=== PATIENT | female | born 1965 | race Caucasian/White ===

== ENCOUNTER → 2019-07-14 12:00 | Outpatient (CLI) | payer OTHER, SELFPAY | DX: Z23 Encounter for immunization (principal) | CPT/HCPCS: 90471; 90686 ==

== ENCOUNTER 2019-09-19 20:11 | Emergency (ER) | payer OTHER, SELFPAY ==
[2019-09-19] VITALS (8 sets, daily range): BP systolic 122–143; BP diastolic 54–65; PULSE 74–92; RESP 16–24; TEMP 36.1–36.3; O2SAT 95–97
--- NOTE | 2019-09-19 20:17 | DI.RAD.S_ITS ---
PROCEDURE: XR CHEST 1V INDICATIONS: Increasing shortness of breath/cough TECHNIQUE: One view of the chest was acquired. COMPARISON: None. FINDINGS: Surgical changes and devices: None. Lungs and pleura: Lungs are clear. No pleural effusions or pneumothorax. Mediastinum: Mediastinal contours appear normal. Heart size is normal. Bones and chest wall: No suspicious bony lesions. Overlying soft tissues appear unremarkable. IMPRESSION: No acute cardiopulmonary disease. Dictated by: Arnie Mcmahon M.D. on 09/19/2019 at 20:41 Approved by: Arnie Mcmahon M.D. on 09/19/2019 at 20:41
[2019-09-19] MEDS: ALBUTEROL/IPRATROPIUM 3 ML AMPUL INH ×2 (20:33→21:39)
--- NOTE | 2019-09-19 20:58 | ED.SOB ---
HPI - SOB/Dyspnea General Chief Complaint: Shortness of Breath/Dyspnea Stated Complaint: SOB COUGH Time Seen by Provider: 09/19/19 20:34 Source: patient Mode of arrival: Ambulatory Limitations: no limitations History of Present Illness HPI Narrative: The patient complains of shortness of breath for the past 4 days. She has cough is nonproductive. She has throat tightness. She denies ear pain, sinus pressure or postnasal drainage. She thinks she has allergies. She has no fever chills with the symptoms. She has no chest pain or palpitations. She has no chronic lung or cardiac disease. She is a cigarette smoker. She has been smoking cigarettes for 37 years. She is not on inhalers. She has no history of asthma. She has no orthopnea or peripheral edema with the above symptoms. Related Data Home Medications Medication Instructions Recorded Confirmed multivitamin 1 tab PO DAILY 08/17/19 08/17/19 Previous Rx's Medication Instructions Recorded lisinopril 20 mg tablet 20 mg PO DAILY #30 tab 08/17/19 prednisone 60 mg PO DAILY 5 Days #15 tab 09/19/19 Allergies Allergy/AdvReac Type Severity Reaction Status Date / Time Barbiturates Allergy Severe anaphylaxis Verified 08/17/19 15:29 Review of Systems Review of Systems ROS Unobtainable: All systems reviewed & are unremarkable except as noted in HPI and below Constitutional Constitutional: Denies chills, Denies fever(s), Denies lethargy and Denies weakness Eyes Eyes: Denies change in vision and Denies irritation ENT Ears, Nose, Mouth, and Throat: Denies change in voice, Denies dizziness, Denies dry mouth, Denies otalgia, Denies neck pain, Denies sinus pressure and Reports sore throat Cardiovascular Cardiovascular: Denies chest pain, Denies irregular heart rhythm, Denies lightheadedness, Denies palpitations, Reports dyspnea on exertion and Denies orthopnea Respiratory Respiratory: Reports as per HPI, Reports chest congestion, Reports cough, Reports dyspnea on exertion and Denies wheezing Gastrointestinal Gastrointestinal: Denies abdominal pain, Denies change in bowel habits, Denies diarrhea, Denies nausea and Denies vomiting Musculoskeletal Musculoskeletal: Denies back pain and Denies neck pain Neurologic Neurologic: Denies dizziness and Denies weakness Endocrine Endocrine: Denies palpitations Allergic/Immunologic Allergic/Immunologic: Denies wheezing Patient History Medical History (Updated 09/19/19 @ 22:49 by Te Yun MD) Hypertension (Acute) Social History Smoking Status: Current every day smoker Smoking Status: Current every day smoker tobacco type: cigarettes Exam Initial Vital Signs Initial Vital Signs: Vital Signs Temperature 96.9 F L 09/19/19 20:15 Pulse Rate 92 H 09/19/19 20:15 Respiratory Rate 22 09/19/19 20:15 Blood Pressure 134/65 09/19/19 20:15 Pulse Oximetry 97 09/19/19 20:15 Const General: cooperative and well developed Nutritional Appearance: well nourished Orientation: alert, awake, oriented x3 and not confused HENMT Head: normocephalic and atraumatic Nose: external nose normal and No nasal discharge Face and sinus: sinuses nontender and face symmetric Mouth: oral mucosae normal and moist mucous membranes Throat: posterior oropharynx normal Eyes Conjunctivae: conjunctivae normal Neck Neck: No lymphadenopathy and No JVD Chest Chest: normal inspection of the chest Resp Auscultation: diminished lung sounds, no rales, no rhonchi and wheezes lower bilaterally Cardio Rate: regular rate Rhythm: regular rhythm Heart Sounds: S1 normal, S2 normal, no click, no gallops, no murmurs and no rubs Pulses: normal peripheral pulses GI Inspection: non-distended Palpation: soft, no hepatosplenomegaly and No guarding Auscultation: normal bowel sounds Skin General: no rashes or lesions noted, No jaundice and No petechiae Neuro General: alert, oriented x3, gait normal and no focal motor deficits Speech: speech normal Extrem General: no pedal edema and no calf tenderness Course Course Course Narrative: The patient received 2 duo nebs over her stay. She received prednisone 60 mg p.o. emesis started on albuterol inhaler. Repeat lung exam continued to show wheezes, but decreased. Her overall air movement has increased significantly. She feels improved. Her chest x-ray is normal. Orders Ordered: ED Orders 09/19/19 20:17 XR chest 1V Stat 09/19/19 20:24 EKG-12 Lead Stat Discontinued Medications Albuterol (Ventolin Hfa Prepack) 1 box MISC SEEINSTR ONE Stop: 09/19/19 21:22 Last Admin: 12/16/19 21:28 Dose: 1 box Documented by: ANGIE Albuterol/Ipratropium (Duoneb) 3 ml INH NOW ONE Stop: 09/19/19 20:31 Last Admin: 09/19/19 20:33 Dose: 3 ml Documented by: YOMI Albuterol/Ipratropium (Duoneb) 3 ml INH NOW ONE Stop: 09/19/19 20:58 Last Admin: 09/19/19 21:39 Dose: 3 ml Documented by: YOMI Prednisone (Deltasone) 60 mg PO NOW ONE Stop: 09/19/19 20:58 Last Admin: 09/19/19 21:08 Dose: 60 mg Documented by: MARCIO Vital Signs Vital signs: Vital Signs - 8 hr 09/19/19 20:15 09/19/19 20:37 09/19/19 20:59 Temperature 96.9 F L Pulse Rate 92 H 74 79 Respiratory Rate 22 24 Blood Pressure 134/65 Blood Pressure [Left Arm] 123/58 L Pulse Oximetry 97 96 95 09/19/19 21:00 09/19/19 21:40 09/19/19 21:42 Temperature Pulse Rate 78 76 79 Respiratory Rate 18 16 Blood Pressure Blood Pressure [Left Arm] 133/61 143/62 H Pulse Oximetry 95 96 95 09/19/19 22:39 Temperature Pulse Rate 87 Respiratory Rate Blood Pressure Blood Pressure [Left Arm] 122/54 L Pulse Oximetry 97 MDM - SOB/Dyspnea Imaging Data Chest x-ray: Radiologist's impression: No acute cardiopulmonary changes. ECG Data Attestation: I personally reviewed and interpreted this ECG as follows: (Normal sinus rhythm rate 75 beats per minute. Normal intervals. No ectopy. No acute ST T wave changes. No arrhythmia. Normal study.) Discharge Plan Departure Patient Disposition: Home Clinical Impression: COPD (chronic obstructive pulmonary disease) Qualifiers: COPD type: unspecified COPD Qualified Code(s): J44.9 - Chronic obstructive pulmonary disease, unspecified Instructions: Chronic Obstructive Pulmonary Disease Activity Restrictions/Additional Instructions: Prednisone 60 mg daily for 5 days. Albuterol 2 puffs every 3-4 hours as needed for cough or shortness of breath. You need to quit smoking, follow up with her doctor for help if he cannot manage this on room. If you have increased problems with breathing return the ER. Prescriptions: New prednisone 20 mg tablet 60 mg PO DAILY 5 Days Qty: 15 RF: 0 No Action multivitamin Tablet 1 tab PO DAILY RF: 0 lisinopril 20 mg tablet 20 mg PO DAILY Qty: 30 RF: 5
[2019-09-19] MEDS: predniSONE 20 MG TABLET 60 MG PO (21:08)
[2019-09-19] MEDS: ALBUTEROL HFA PREPACK 1 BOX MISC (21:28)
== END 2019-09-19 23:28 | disposition home or self-care (01) ==
PROVIDERS: Emergency Provider Emergency Medicine
DX: J44.9 Chronic obstructive pulmonary disease, unspecified (principal); I10 Essential (primary) hypertension
CPT/HCPCS: 71045; 93005; 93010; 94640; 99281; 99284

== ENCOUNTER → 2019-10-20 08:20 | Outpatient (CLI) | payer OTHER, SELFPAY ==
[2019-10-20 09:59] LABS: Hematocrit 32.7 % (36-46); Hemoglobin 10.7 g/dL (12.0-16.0); Mean Corpuscular HGB Conc 32.8 % (30-36); Mean Corpuscular Hemoglobin 26.1 PG (26-34); Mean Corpuscular Volume 79.4 fL (80-100); Platelet Count 643 X10^3/uL (150-400); Red Blood Cell Count 4.12 X10^6/uL (4.0-5.2); Red Cell Distribution Width 15.1 % (11.6-14.8); White Blood Cell Count 8.4 X10^3/uL (4.5-11.0)
[2019-10-20 10:01] LABS: Alanine Aminotransferase 16 IU/L (<35); Albumin 4.4 g/dL (3.5-5.0); Albumin Globulin Ratio 1.5 (1.0-2.8); Alkaline Phosphatase 91 U/L (38-126); Aspartate Aminotransferase 18 IU/L (14-36); Bilirubin Total 0.4 mg/dL (0.2-1.3); Blood Urea Nitrogen 15 mg/dL (7-17); Calcium 9.9 mg/dL (8.4-10.2); Carbon Dioxide 25 mmol/L (22-32); Chloride 102 mmol/L (98-107); Cholesterol 224 mg/dL (140-199); Estimated Glomerular Filt Rate > 60.0 mL/min (>60); Globulin 2.9 g/dL (1.7-4.1); Glucose 97 mg/dL (70-100); HDL Cholesterol 60 mg/dL (40-60); HEMOLYSIS < 15 (0-50); LDL Cholesterol Calculated 130 mg/dL (<100); Potassium 4.6 mmol/L (3.4-5.1); Sodium 137 mmol/L (137-145); Total Protein 7.3 g/dL (6.3-8.2); Triglycerides 170 mg/dL (35-150)
[2019-10-20 10:02] LABS: Creatinine Urine Random 55.2 mg/dL
[2019-10-20 10:05] LABS: Microalbumi Creatinin Ratio Ur 85.1 ug/mg CR (<30); Microalbumin Urine Random 4.7 mg/dL (0-1.6)
[2019-10-20 10:17] LABS: Follicle Stimulating Hormone 7.46 mIU/mL; Luteinizing Hormone 8.79 mIU/mL
[2019-10-20 16:23] LABS: HEMOLYSIS < 15 (0-50); Iron 21 ug/dL (37-170)
[2019-10-20 16:34] LABS: Percent Iron Saturation 5 % (15-50); Total Iron Binding Capacity 436 ug/dL (265-497); Transferrin 370 mg/dL (206-381)
[2019-10-20 17:00] LABS: Ferritin 6.4 ng/mL (11.1-264)
[2019-10-20 17:30] LABS: Folate 13.1 ng/mL (2.76-20.0); Vitamin B12 444 pg/mL (239-931)
[2019-10-22 19:24] LABS: Estrogen 607.1 pg/mL
== END ==
PROVIDERS: PCP Nurse Practitioner Family; Visit Provider Nurse Practitioner Family
DX: Z00.00 Encounter for general adult medical examination without abnormal findings (principal); I10 Essential (primary) hypertension; N92.0 Excessive and frequent menstruation with regular cycle; Z13.6 Encounter for screening for cardiovascular disorders; D64.9 Anemia, unspecified
CPT/HCPCS: 36415; 80053; 80061; 82043; 82570; 82607; 82672; 82728; 82746; 83001; 83002; 83540; 83550; 85027

== ENCOUNTER → 2019-11-18 11:46 | Outpatient (CLI) | payer OTHER, SELFPAY ==
[2019-11-18 12:46] LABS: Hematocrit 34.4 % (36-46); Hemoglobin 11.2 g/dL (12.0-16.0); Mean Corpuscular HGB Conc 32.6 % (30-36); Mean Corpuscular Volume 79.7 fL (80-100); Platelet Count 575 X10^3/uL (150-400); Red Blood Cell Count 4.32 X10^6/uL (4.0-5.2); Red Cell Distribution Width 16.6 % (11.6-14.8); White Blood Cell Count 8.1 X10^3/uL (4.5-11.0)
[2019-11-18 13:35] LABS: Ferritin 7.7 ng/mL (11.1-264)
== END ==
PROVIDERS: PCP Nurse Practitioner Family; Referring Provider Nurse Practitioner Family; Visit Provider Nurse Practitioner Family
DX: D50.9 Iron deficiency anemia, unspecified (principal)
CPT/HCPCS: 36415; 82728; 85027

== ENCOUNTER → 2019-11-30 11:14 | Outpatient (CLI) | payer OTHER, SELFPAY ==
[2019-11-30 11:47] LABS: Hematocrit 39.7 % (36-46); Hemoglobin 13.1 g/dL (12.0-16.0); Mean Corpuscular HGB Conc 32.9 % (30-36); Mean Corpuscular Hemoglobin 26.4 PG (26-34); Mean Corpuscular Volume 80.2 fL (80-100); Platelet Count 515 X10^3/uL (150-400); Red Blood Cell Count 4.95 X10^6/uL (4.0-5.2); Red Cell Distribution Width 18.5 % (11.6-14.8); White Blood Cell Count 7.4 X10^3/uL (4.5-11.0)
[2019-11-30 12:44] LABS: Free T4, Direct Thyroxine 1.18 ng/dL (0.78-2.19)
[2019-11-30 12:58] LABS: Thyroid Stimulating Hormone 1.16 uIU/mL (0.47-4.68)
[2019-11-30 13:01] LABS: Ferritin 12 ng/mL (11-264)
== END ==
PROVIDERS: PCP Nurse Practitioner Family; Referring Provider Obstetrics & Gynecology; Visit Provider Obstetrics & Gynecology
DX: D50.9 Iron deficiency anemia, unspecified (principal)
CPT/HCPCS: 36415; 82728; 84439; 84443; 85027

== ENCOUNTER → 2019-12-22 15:31 | Outpatient (CLI) | payer OTHER, SELFPAY ==
--- NOTE | 2019-12-22 15:32 | DI.MRI.S_ITS ---
PROCEDURE: MR ABDOME PELVIS WWO CON INDICATIONS: adenxal mass TECHNIQUE: Coronal HASTE, sagittal breath-hold T2 FSE; axial 2-D FLASH in- and [id number], axial T1 FSE with fat saturation through the pelvis. Optional long- and short-axis uterine nonbreath-hold T2 FSE through the uterus. Sagittal or axial dynamic VIBE during IV gadolinium administration; postgadolinium axial and sagittal VIBE/2-D FLASH with fat saturation from the iliac crests to the symphysis. COMPARISON: [facility], US, US PELVIC COMPLETE, 12/07/2019, 14:48. FINDINGS: Image quality: Good. A few sequences are degraded by artifact. Uterus: Enlarged measuring approximately 9.4 x 7.5 x 7 cm. Large anterior fundal intramural fibroid measuring 5.8 x 5.4 x 4.3 cm. Small right mid intramural fibroid measuring 1.3 x 1.1 cm. There is mild distortion of the endometrial canal to to the large fibroid. Endometrial thickness measures 10 mm. IUD is located in the mid/lower portion of the uterus. IUD strings extend into the vagina. Tampon is in place. Small nabothian cysts. Adnexa: Right ovary is within normal limits with a few subcentimeter intrinsic T1 hyperintense cysts. In the left ovary demonstrates an intrinsic T1 hyperintensity, T2 isointense cyst measuring 3.2 x 2.9 x 2.7 cm, (08/28). This cyst is well-circumscribed and is mildly heterogeneous. No signal dropout on the fat saturation sequences. No enhancement is appreciated. Restricted diffusion is present. Urinary system: No large nephrosis. No renal mass. Bladder is unremarkable. Abdomen: Nonstenotic liver morphology. No significant steatosis. A few benign T2 hyperintense cysts. Gallbladder is unremarkable. No biliary ductal dilatation. No splenomegaly. Pancreas is normal. No pancreatic ductal dilatation. No adrenal nodule. Diverticulosis. No dilated loops of bowel. Appendix is normal in caliber. There is increased stool in the rectum. No free fluid. No aortic aneurysm. Atherosclerotic plaque is present. No adenopathy. Bones and soft tissues: No suspicious signal abnormality or enhancement. No hernia. Lung bases are clear. No pleural effusion. IMPRESSION: 1. Enlarged fibroid uterus. Large anterior fundal intramural fibroid measuring 5.8 cm. 2. Mild distortion of the endometrial canal due to fibroids. IUD is located in the mid/lower uterus. 3. Left ovarian circumscribed cyst measuring 3.2 cm with proteinaceous contents and no fat or enhancement. This is most likely a hemorrhagic cyst. -Followup pelvic ultrasound in 6-12 weeks is recommended. 4. Diverticulosis. Dictated by: Alex Curtis M.D. on 12/23/2019 at 8:21 Approved by: Alex Curtis M.D. on 12/23/2019 at 8:50
== END ==
PROVIDERS: PCP Nurse Practitioner Family; Referring Provider Obstetrics & Gynecology; Visit Provider Obstetrics & Gynecology
DX: N94.89 Other specified conditions associated with female genital organs and menstrual cycle (principal); D25.1 Intramural leiomyoma of uterus; N88.8 Other specified noninflammatory disorders of cervix uteri; K57.90 Diverticulosis of intestine, part unspecified, without perforation or abscess without bleeding; N83.202 Unspecified ovarian cyst, left side; Z97.5 Presence of (intrauterine) contraceptive device
CPT/HCPCS: 72197; A9579

== ENCOUNTER → 2020-02-09 15:06 | Outpatient (CLI) | payer OTHER, SELFPAY ==
--- NOTE | 2020-02-09 15:07 | DI.US.S_ITS ---
PROCEDURE: US PELVIC COMPLETE INDICATIONS: 2-3 MO F/U LEFT OVARIAN CYST TECHNIQUE: Real-time scanning was performed of the pelvic organs, with image documentation. Additional endovaginal scanning was necessary due to incomplete visualization of the adnexal and endometrial structures by transabdominal scanning. COMPARISON: [facility], , US PELVIC COMPLETE, 12/07/2019, 14:48. FINDINGS: Transabdominal scanning: Limited scanning through the kidneys shows no hydronephrosis. No pathologic free abdominal or pelvic fluid. Endovaginal scanning: Uterus: Uterus is normal in size at 10.1 x 7.2 x 7.6 cm. The endometrium measures 13 mm in combined thickness. An IUD is seen within the lower uterine segment. There is a fibroid seen within the mid anterior uterus that measures 5.6 x 5.5 x 5.7 cm. Ovaries: The right ovary measures 3.3 x 2.7 x 2.2 cm and demonstrates a 2.6 cm simple appearing cyst. The left ovary measures 4.3 x 2.8 x 3 cm and demonstrates a simple appearing cyst that measures up to 2.9. No suspicious ovarian masses are seen. No adnexal masses are seen. IMPRESSION: The IUD is seen within the lower uterine segment. 5.7 cm uterine fibroid noted anteriorly. Physiologic appearing cysts can be seen involving each ovary. Dictated by: Branden Miller M.D. on 02/10/2020 at 10:15 Approved by: Branden Miller M.D. on 02/10/2020 at 10:18
== END ==
PROVIDERS: PCP Nurse Practitioner Family; Referring Provider Obstetrics & Gynecology; Visit Provider Obstetrics & Gynecology
DX: D25.9 Leiomyoma of uterus, unspecified (principal); N83.202 Unspecified ovarian cyst, left side; N83.201 Unspecified ovarian cyst, right side; Z97.5 Presence of (intrauterine) contraceptive device
CPT/HCPCS: 76830; 76856

== ENCOUNTER → 2020-05-17 15:06 | Outpatient (CLI) | payer OTHER, SELFPAY ==
[2020-05-17 16:11] LABS: Hematocrit 38.3 % (36-46); Hemoglobin 13.1 g/dL (12.0-16.0); Mean Corpuscular HGB Conc 34.1 % (30-36); Mean Corpuscular Hemoglobin 29.7 PG (26-34); Mean Corpuscular Volume 87.1 fL (80-100); Platelet Count 433 X10^3/uL (150-400); Red Cell Distribution Width 14.1 % (11.6-14.8); White Blood Cell Count 9.7 X10^3/uL (4.5-11.0)
== END ==
PROVIDERS: PCP Nurse Practitioner Family; Referring Provider Nurse Practitioner Family; Visit Provider Nurse Practitioner Family
DX: D50.9 Iron deficiency anemia, unspecified (principal)
CPT/HCPCS: 36415; 85027

== ENCOUNTER → 2020-07-25 15:37 | Outpatient (CLI) | payer OTHER, SELFPAY ==
[2020-07-25 16:35] LABS: HEMOLYSIS < 15 (0-50); Iron 70 ug/dL (37-170)
[2020-07-25 16:39] LABS: Alanine Aminotransferase 40 IU/L (<35); Albumin 4.8 g/dL (3.5-5.0); Albumin Globulin Ratio 1.6 (1.0-2.8); Alkaline Phosphatase 78 U/L (38-126); Aspartate Aminotransferase 27 IU/L (14-36); BUN Creatinine Ratio 27.7 (6-22); Bilirubin Total 0.4 mg/dL (0.2-1.3); Blood Urea Nitrogen 18 mg/dL (7-17); Calcium 10.7 mg/dL (8.4-10.2); Carbon Dioxide 31 mmol/L (22-32); Chloride 102 mmol/L (98-107); Cholesterol 233 mg/dL (140-199); Estimated Glomerular Filt Rate > 60.0 mL/min (>60); Glucose 130 mg/dL (70-100); HDL Cholesterol 50 mg/dL (40-60); HEMOLYSIS < 15 (0-50); LDL Cholesterol Calculated 115 mg/dL (<100); Potassium 4.4 mmol/L (3.4-5.1); Sodium 140 mmol/L (137-145); Total Protein 7.8 g/dL (6.3-8.2); Triglycerides 342 mg/dL (35-150)
[2020-07-25 16:40] LABS: C-Reactive Protein Quant < 0.5 mg/dL (<1.0)
[2020-07-25 16:46] LABS: Percent Iron Saturation 19 % (15-50); Total Iron Binding Capacity 366 ug/dL (265-497); Transferrin 306 mg/dL (206-381)
[2020-07-25 16:49] LABS: Hematocrit 39.7 % (36-46); Hemoglobin 13.3 g/dL (12.0-16.0); Mean Corpuscular HGB Conc 33.5 % (30-36); Mean Corpuscular Hemoglobin 29.8 PG (26-34); Platelet Count 492 X10^3/uL (150-400); Red Blood Cell Count 4.47 X10^6/uL (4.0-5.2); Red Cell Distribution Width 13.6 % (11.6-14.8); White Blood Cell Count 9.6 X10^3/uL (4.5-11.0)
[2020-07-25 17:11] LABS: Ferritin 14 ng/mL (11-264)
[2020-07-25 17:42] LABS: Erythrocyte Sedimentation Rate 13 MM/HR (0-20)
[2020-07-27 20:56] LABS: ANA Screen, IFA Positive (.)
== END ==
PROVIDERS: PCP Nurse Practitioner Family; Referring Provider Nurse Practitioner Family; Visit Provider Nurse Practitioner Family
DX: D50.9 Iron deficiency anemia, unspecified (principal); E78.2 Mixed hyperlipidemia; I10 Essential (primary) hypertension; M25.649 Stiffness of unspecified hand, not elsewhere classified; M79.643 Pain in unspecified hand
CPT/HCPCS: 36415; 80053; 80061; 82728; 83540; 83550; 85027; 85651; 86038; 86140

== ENCOUNTER → 2020-08-02 04:07 | Outpatient (CLI) | payer OTHER, SELFPAY | PROVIDERS: PCP Nurse Practitioner Family; Referring Provider Internal Medicine; Visit Provider Internal Medicine | DX: Z23 Encounter for immunization (principal) | CPT/HCPCS: 90471; 90686 ==

== ENCOUNTER → 2020-08-14 09:13 | Outpatient (CLI) | payer OTHER, SELFPAY ==
--- NOTE | 2020-08-14 09:15 | DI.US.S_ITS ---
PROCEDURE: US PELVIC COMPLETE INDICATIONS: FIBROID TECHNIQUE: Real-time scanning was performed of the pelvic organs, with image documentation. Additional endovaginal scanning was necessary due to incomplete visualization of the adnexal and endometrial structures by transabdominal scanning. COMPARISON: [facility], , PELVIC COMPLETE, 12/07/2019, 14:48. [facility], , PELVIC COMPLETE, 02/09/2020, 15:23. FINDINGS: Transabdominal scanning: Limited scanning through the kidneys shows no hydronephrosis. No pathologic free abdominal or pelvic fluid. Endovaginal scanning: Uterus: Uterus is normal in size at 9.8 x 6 x 1 x 7.2 cm. Along the right anterior aspect of the uterus, there is an intramural fibroid seen that measures 4.4 x 3.7 x 5 cm, which previously measured 5.6 x 5.5 x 5.7 cm The endometrial stripe is not well seen. The IUD is poorly identified secondary to the fibroid, yet is believed to be at the level of the cervix. Incidental note is made of nabothian cysts. Ovaries: The right ovary measures 2.5 x 1.7 x 1.7 cm. The left ovary measures 2.6 x 1.5 x 1.9 cm. The ovaries have a normal sonographic appearance. No adnexal masses are seen. IMPRESSION: Fibroid again seen. The fibroid obscures visualization of the endometrial stripe. IUD poorly seen, which is believed to be at the level of the cervix. Please correlate with known patient history. If clinically appropriate, a dedicated CT could be considered for further evaluation. Dictated by: Branden Miller M.D. on 08/14/2020 at 9:23 Approved by: Branden Miller M.D. on 08/14/2020 at 9:27
== END ==
PROVIDERS: PCP Nurse Practitioner Family; Referring Provider Obstetrics & Gynecology; Visit Provider Obstetrics & Gynecology
DX: N92.1 Excessive and frequent menstruation with irregular cycle (principal); D25.1 Intramural leiomyoma of uterus; N88.8 Other specified noninflammatory disorders of cervix uteri; Z97.5 Presence of (intrauterine) contraceptive device
CPT/HCPCS: 76830; 76856

== ENCOUNTER → 2020-08-16 07:10 | Outpatient (CLI) | payer OTHER, SELFPAY ==
[2020-08-16 08:26] LABS: Hemoglobin 13.3 g/dL (12.0-16.0); Mean Corpuscular HGB Conc 33.3 % (30-36); Mean Corpuscular Hemoglobin 29.3 PG (26-34); Mean Corpuscular Volume 88.2 fL (80-100); Platelet Count 463 X10^3/uL (150-400); Red Blood Cell Count 4.54 X10^6/uL (4.0-5.2); Red Cell Distribution Width 13.1 % (11.6-14.8); White Blood Cell Count 8.2 X10^3/uL (4.5-11.0)
[2020-08-16 08:29] LABS: Alanine Aminotransferase 42 IU/L (<35); Albumin 4.7 g/dL (3.5-5.0); Albumin Globulin Ratio 1.5 (1.0-2.8); Alkaline Phosphatase 73 U/L (38-126); Aspartate Aminotransferase 28 IU/L (14-36); BUN Creatinine Ratio 40.4 (6-22); Bilirubin Total 0.5 mg/dL (0.2-1.3); Blood Urea Nitrogen 23 mg/dL (7-17); Carbon Dioxide 31 mmol/L (22-32); Chloride 100 mmol/L (98-107); Cholesterol 215 mg/dL (140-199); Estimated Glomerular Filt Rate > 60.0 mL/min (>60); Globulin 3.2 g/dL (1.7-4.1); Glucose 122 mg/dL (70-100); HDL Cholesterol 46 mg/dL (40-60); HEMOLYSIS < 15 (0-50); LDL Cholesterol Calculated 132 mg/dL (<100); Potassium 4.4 mmol/L (3.4-5.1); Sodium 136 mmol/L (137-145); Total Protein 7.9 g/dL (6.3-8.2); Triglycerides 186 mg/dL (35-150)
[2020-08-16 12:18] LABS: Add Manual Diff / Slide Review NO; Basophils Absolute Auto 100 /uL (0-100); Basophils Percent Auto 0.6 % (0-2); Eosinophils Absolute Auto 200 /uL (0-450); Eosinophils Percent Auto 1.9 % (2-4); Hematocrit 39.6 % (36-46); Hemoglobin 13.4 g/dL (12.0-16.0); Lymphocytes Absolute Auto 2100 /uL (1100-4500); Lymphocytes Percent Auto 26.3 % (25-40); Mean Corpuscular HGB Conc 33.7 % (30-36); Mean Corpuscular Hemoglobin 29.7 PG (26-34); Mean Corpuscular Volume 87.9 fL (80-100); Monocytes Absolute Auto 500 /uL (0-900); Monocytes Percent Auto 6.2 % (3-14); Neutrophils Absolute Auto 5300 /uL (1500-7000); Platelet Count 462 X10^3/uL (150-400); Red Blood Cell Count 4.51 X10^6/uL (4.0-5.2); Red Cell Distribution Width 13.3 % (11.6-14.8); White Blood Cell Count 8.1 X10^3/uL (4.5-11.0)
[2020-08-16 12:27] LABS: Hemoglobin A1C% w Est Avg Glu 6.3 % (4.0-6.0)
== END ==
PROVIDERS: PCP Nurse Practitioner Family; Referring Provider Nurse Practitioner Family; Visit Provider Nurse Practitioner Family
DX: E83.52 Hypercalcemia (principal); I10 Essential (primary) hypertension; R73.9 Hyperglycemia, unspecified; R79.89 Other specified abnormal findings of blood chemistry; E78.2 Mixed hyperlipidemia
CPT/HCPCS: 36415; 80053; 80061; 83036; 85025; 85027

== ENCOUNTER → 2020-10-10 12:52 | Outpatient (CLI) | payer OTHER, SELFPAY ==
[2020-10-10] MEDS: COVID-19 VACC(MODERNA-1)/PF 100 MCG/0.5 ML VIAL IM (12:58)
== END ==
PROVIDERS: PCP Nurse Practitioner Family; Visit Provider Internal Medicine
DX: Z23 Encounter for immunization (principal)
CPT/HCPCS: 0011A; 91301

== ENCOUNTER → 2020-10-12 14:02 | Outpatient (CLI) | payer OTHER, SELFPAY ==
[2020-10-12 14:24] LABS: COVID19 -Nasal RAPID Negative (Negative)
== END ==
PROVIDERS: PCP Nurse Practitioner Family; Visit Provider Obstetrics & Gynecology
DX: Z20.822 Contact with and (suspected) exposure to COVID-19 (principal); Z01.812 Encounter for preprocedural laboratory examination
CPT/HCPCS: 87635

== ENCOUNTER 2020-10-15 06:45 | Day surgery (SDC) | payer OTHER, SELFPAY ==
[2020-10-12 09:17] VITALS: BMI 30.9
[2020-10-15] VITALS (16 sets, daily range): BP systolic 107–136; BP diastolic 45–71; PULSE 77–106; RESP 10–20; TEMP 35.9–37.3; O2SAT 88–97; BMI 31.2
--- NOTE | 2020-10-15 | PATH_ITS ---
[facility] Accession Number: [id number] . 01 Material submitted: . uterus - UTERUS, FIBROID, PORTION OF BILATERAL FALLOPIAN TUBES, BILATERAL OVARIES . 01 Clinical history: . OPB . 02 Diagnosis: Uterus, Fibroid, Portion of Bilateral Fallopian Tubes, Bilateral Ovaries, Supracervical Hysterectomy and Bilateral Salpingo-oophrectomy (weight 199 grams, fragmented weight): Portions of proliferative endometrium; negative for glandular hyperplasia, cytologic atypia, or malignancy. Disordered proliferative endometrium involves a benign endometrial polyp (3.5 cm in greatest dimension); negative for glandular hyperplasia, cytologic atypia, or malignancy. Myometrium with multiple leiomyomas (0.3-6.0 cm in greatest dimension); negative for cytologic atypia, increased mitotic activity, or necrosis. Uterine serosa with no abnormality by gross examination. Ovaries x2 with multiple corpora albicancia, a benign corpus luteum cyst, and benign cortical inclusion cysts (1-8 mm in greatest dimension); negative for atypia or malignancy. One segment of attached fallopian tube and separate segments of fallopian tube x 3 with no significant histomorphologic abnormality; negative for atypia or malignancy. Para-adnexal tissue with minute, benign glandular inclusions and benign Walthard cell nests. [facility] 10/18/2020 1708 Local . 02 Electronically signed: . Negra Swanson MD, Pathologist NPI- [id number] . 01 Gross description: . The specimen is received in formalin, labeled uterus, fibroid, portion of bilateral fallopian tubes and bilateral ovaries and consists of a 199-gram fragmented uterus measuring 15.0 x 13.0 x 6.0 cm in aggregate. A cervix is not identified. The serosa is cox-pink focally hemorrhagic and smooth. Sectioning reveals a cox-pink glistening hemorrhagic endometrium measuring 0.1 cm in thickness. The myometrium is cox-pink and trabeculated. There are multiple cox-white whorled leiomyomata fragments ranging from 0.3 to 6.0 cm with no areas of hemorrhage, necrosis or cystic degeneration. There is a fragment of presumed endometrium and myometrium with an attached 3.5 x 3.0 x 1.0 cm cox-pink polyp which does not appear to extend into the myometrium. Two ovaries are identified measuring 2.2 x 2.0 x 1.6 cm and 3.0 x 2.5 x 1.8 cm. The external surfaces are cox and cerebriform. Sectioning reveals multiple smooth-walled serous-filled cysts ranging from 0.1 to 0.8 cm, with no papillary excrescences. The larger ovary has a 2.0 cm in length by 0.6 cm in diameter fimbriated portion of fallopian tube attached. Also received are three additional fallopian tube fragments measuring 4.6 x 1.5 x 1.2 cm in aggregate. The serosa is cox-pink and smooth with focal fibrinous adhesions. Sectioning reveals a stellate lumen measuring 0.2 cm in diameter. Stallion Keeper sections are submitted. . A1-A6 - polyp, entirely submitted (base of polyp in A4-A6). A7 - indirect sales representative endomyometrium. A8-A10 - indirect sales representative leiomyomata. A11-A12 - indirect sales representative ovary and bisected attached fimbria. A13 - indirect sales representative other ovary. A14 - indirect sales representative detached fallopian tube fragments and bisected fimbria. ([id number]) /MRV 10/17/[address] [place] [address] . 02 Pathologist provided ICD-10: N93.9, D25.9, N84.0 . 02 CPT . 398695 Performed at: 01 [facility] [address], [place], [place] [id number] MD Enmanuel Rogers MD Phone: [phone] Performed at: 02 [facility] [address] [place], [place] [id number] MD Gavi Versa MD Phone: [phone]
[2020-10-15] MEDS: LACTATED RINGERS 1,000 ML 42 ML IV ×2 (07:00→09:02)
--- NOTE | 2020-10-15 07:47 | PM.PREOP ---
Pre-operative Note COVID-19 COVID-19 status: Negative Result date/Date tested (Pos, Neg/Pending): 10/12/20 Interval Note History & Physical reviewed/Exam performed by Physician: Yes Changes to H&P: No
[2020-10-15] MEDS: CEFAZOLIN 2 GM/100 ML FROZ.PIGGY IV (08:08)
[2020-10-15 08:24] LABS: Add Manual Diff / Slide Review NO; Basophils Absolute Auto 100 /uL (0-100); Basophils Percent Auto 1.3 % (0-2); Eosinophils Absolute Auto 200 /uL (0-450); Hematocrit 39.8 % (36-46); Hemoglobin 13.1 g/dL (12.0-16.0); Lymphocytes Absolute Auto 1800 /uL (1100-4500); Lymphocytes Percent Auto 22.7 % (25-40); Mean Corpuscular Volume 87.8 fL (80-100); Monocytes Absolute Auto 400 /uL (0-900); Monocytes Percent Auto 5.6 % (3-14); Neutrophils Absolute Auto 5300 /uL (1500-7000); Neutrophils Percent Auto 68.4 % (50-75); Platelet Count 446 X10^3/uL (150-400); Red Blood Cell Count 4.53 X10^6/uL (4.0-5.2); Red Cell Distribution Width 13.7 % (11.6-14.8); White Blood Cell Count 7.7 X10^3/uL (4.5-11.0)
[2020-10-15 08:35] LABS: BUN Creatinine Ratio 29.6 (6-22); Blood Urea Nitrogen 16 mg/dL (7-17); Calcium 9.4 mg/dL (8.4-10.2); Carbon Dioxide 30 mmol/L (22-32); Chloride 104 mmol/L (98-107); Estimated Glomerular Filt Rate > 60.0 mL/min (>60); Glucose 110 mg/dL (70-100); HEMOLYSIS < 15 (0-50); Potassium 4.6 mmol/L (3.4-5.1); Sodium 139 mmol/L (137-145)
[2020-10-15] MEDS: ACETAMINOPHEN IV 1,000 MG/100 ML VIAL 400 MG IV (08:43)
[2020-10-15] MEDS: BUPIVACAINE 0.25% W/ EPI (PF) 10 ML VIAL 20 ML INJ (08:49)
--- NOTE | 2020-10-15 08:51 | SUR.OPER ---
Addendum entered by Maria C Goodman R.N. 10/15/20 10:43: Wen catheter removed by Dr. Valente prior to Cystoscopy and new urinary catheter replaced at [address] Valente. Original Note: Lithotomy on padded OR bed. Le Grand Pad Positioner under torso. Head on foam and gel donut, arms padded and tucked at sides. Legs secured in padded yellow fins stirrups.
--- NOTE | 2020-10-15 10:51 | PM.OP.1 ---
Operative Date/Time/Diagnoses Date of procedure: 10/15/20 Time of procedure: 08:30 Pre-op diagnosis: fibroid uterus, AUB Post-op diagnosis: same Procedure & Clinicians Procedure: laparoscopic supracervical hysterectomy and bilateral salpingoophorectomy Same procedure as scheduled: Yes Indications: Fibroid uterus, abnormal uterine bleeding. Surgeon: Sona Valente Radiologist Chief Of Breast Imaging: Ariella Camara Anesthesia Type: General Operative Notes Findings: Normal dominant survey, normal ovaries, normal rim dense of fallopian tube. Large anterior uterine fibroid. Normal vulva and vagina. IUD not visualized on laparoscopy, not in specimen. Closure Type: primary Specimen(s): other Applied: catheter Estimated Blood Loss (mL): 50 Procedure in detail: After proper consents were obtained, the patient was taken to the operating room. General anesthesia was induced, and she was placed in the dorsal lithotomy position and prepped and draped in the normal sterile fashion. A menendez catheter was placed, and a speculum placed in the patient's vagina. A single tooth tenaculum was applied to the anterior lip of the cervix, and IUD strings could not be visualized. Exploration of the endometrial cavity with polyp forceps did not locate the IUD. The cervix was found to be dilated at the beginning of the procedure, and a uterine manipulator was gently inserted and the balloon inflated to 5ccs. The tenaculum and speculum were removed from the vagina. Attention was then turned to the abdomen, where 1cc of .25% marcaine with epinephrine was used to infiltrate the skin just below the umbilicus. A scalpel was used to make a 5mm incision, the anterior abdominal wall was elevated, and a Veress needle gently inserted into the abdomen. Intraperitoneal placement was confirmed with a drop of normal saline passed through the veress needle with gravity, and CO2 used to insufflate the abdomen to 15mmHg. A 5mm trocar and sleeve were placed into the abdomen through this incision and intraperitoneal placement was confirmed visually with insertion of the laparoscope. Abdominal survey at this time was normal, and lateral ports were placed under direct visualization. These were placed on the left and right, 8cm from the umbilicus and after infiltration of 1mm of local anesthetic as above. The patient was placed in trendelenburg position, and a blunt probe used to gently push the bowel out of the pelvis. The ovaries and fallopian tube remnants appeared normal bilaterally. The uterus was notable for large anterior fibroid, with filmy adhesions holding it to the anterior abdominal wall. A atraumatic grasper was used to elevate the remnant of the right fallopian tube, and a PK device was used to amputate this remnant, which was removed from the abdomen. The uteroovarian ligament and round ligaments were then cauterized and transected with this device. Filmy adhesions were noted to be adhering the anterior wall of the uterus and the bladder to the anterior abdominal wall, these were carefully dissected away with Endo [place] without cautery. Attention was then turned to the patient's left side, where the fallopian tube was amputated using the PK device along the mesosalpinx and the round and utero-ovarian ligaments transected with the PK device. The vesicouterine peritoneum was identified, and a bladder flap created with the PK device and gentle traction. The uterine arteries were identified bilaterally, and cauterized and cut at the level of the internal os. The uterine manipulator was removed. The Chance loop was inserted into the abdomen, and placed around the uterus at the level of the internal os. After careful inspection for proper placement anteriorly and posteriorly, this device was used to amputate the uterine fundus without complication. The PK device was used to ablate the cervical os, and hemostasis achieved where necessary with the PK device. Attention was then turned to the ovaries, which had not been adequately accessible for removal prior to removal of the uterus with the large fibroid. The right ovary was grasped with an atraumatic grasper, and placed on traction. The IP was easily visualized, and the PK device used to the clamp, cauterize, and cut the IP, hugging the ovary throughout. Attention was then turned to the left ovary, where the same procedure was noted. Due to the patient's filmy adhesive scar tissue, the ureters could not be visualized, and care was taken to hug both ovaries during the removal. Attention was then turned to the abdominal wall, where .25% marcaine with epinephrine was used to infiltrate a midline area 2cm above the pubic symphesis. A scalpel was used to make a 3cm minilaparotomy, and a 15mm trocar and sleeve inserted under direct visualization into the abdominal cavity. A 12mm endocatch bag was placed through this port under direct visualization, and carefully deployed into the abdomen. The uterus and ovaries were placed in the bag, and the bag was closed and removed under direct visualization of all parts of the bag. The open end of the bag was removed through the port, the port was removed, and the open end of the endocatch bag brought through the incision. A small Shania device was inserted to protect the incision and skin, and the uterus was brought to the opening of the incision and carefully hand morcellated out through the incision using a scalpel. After removal of the uterus, the shania device and endocatch bag were removed. The fascia at the minilaparotomy incision was closed using 0 vicryl in a running fashion. The abdomen was re-insufflated, hemostasis at the operative sites assured, and a repeat abdominal survey was normal. The laparoscope was removed from the abdomen, the insufflating gas allowed to escape. The Menendez catheter was removed from the bladder and a cystoscopy performed, with efflux of ureteral jets noted from both ureters bilaterally and no bladder injury noted. The ports removed from the abdomen. An interrupted suture was used at the mini-laparotomy to close the subcutaneous space in an interrupted fashion, and the skin at all 4 incisions closed with 4-0 biosyn, then covered with steri strips and bandages. The patient tolerated the procedure well, all counts were correct, 2g of Ancef were given at the beginning of the case. The patient was transported to PACU in stable condition. Dr. Camara presence was essential throughout the case to assist in manipulation of the large fibroid uterus for adequate visualization. She assisted with uterine manipulation, cautery, and achieving hemostasis. IVF 1300ccs LR UOP 100ccs clear yellow urine EBL 50ccs Complications: none Post-operative Condition: stable Disposition: PACU Plan for aftercare: Routine postoperative care.
--- NOTE | 2020-10-15 12:34 | SUR.PHASEI ---
pt arrived from OR, oral airway in place, loud snoring. 4L O2 via NC to maintain sats. airway out at 1127. Pt very somnolent. Arrouses easily but states she doesn't feel good, i need to go back to sleep. able to resume sleeping. down to 2LPM on NC, tried RA but down to 89. transported to room 202. Report to Madyson NUNES. Pt requested rings be placed back on her hand, this was done per pt request.
[2020-10-15] MEDS: LACTATED RINGERS 1,000 ML 125 ML IV (13:07)
[2020-10-15] MEDS: ACETAMINOPHEN 325 MG TABLET 650 MG PO (14:52)
--- NOTE | 2020-10-15 14:54 | PC.NURSE ---
Arrived on unit at 12:30. BP: 130/59, HR 103, Temp 97.3, Resp 18, O2 97 on room air. Pain 5/10. Given PRN Tylenol 650 mg. SCDs removed per patient request. Wen catheter removed. at bedside. Patient wants to discharge home today.
[2020-10-15] MEDS: IBUPROFEN 400 MG TABLET 600 MG PO (16:19)
--- NOTE | 2020-10-15 17:37 | PM.PN.1 ---
Subjective Subjective Date Patient Seen: 10/15/20 Time Patient Seen: 18:03 Interval history: Patient has done well since coming to floor from PACU. Patient is voiding clear urine, is ambulating, has tolerated a normal medial, is passing flatus, and has good pain control on p.o. pain medication. Patient strongly desires discharge home. Exam Vital Signs (past 8 hours): - 10/15/20 11:06 10/15/20 11:11 10/15/20 11:16 Temperature 97.8 F Pulse Rate 106 H 102 H 104 H Respiratory Rate 13 14 13 Blood Pressure 128/54 L 119/54 L 107/50 L Pulse Oximetry 88 L 94 95 10/15/20 11:20 10/15/20 11:30 10/15/20 11:35 Temperature 97.3 F L Pulse Rate 102 H 106 H 103 H Respiratory Rate 13 14 12 Blood Pressure 124/59 L 130/57 L 134/62 Pulse Oximetry 96 97 96 10/15/20 11:46 10/15/20 11:56 10/15/20 12:06 Temperature 98 F Pulse Rate 102 H 101 H 100 H Respiratory Rate 12 10 L 14 Blood Pressure 119/45 L 136/63 134/63 Pulse Oximetry 95 95 96 10/15/20 12:20 10/15/20 12:30 10/15/20 13:00 Temperature 97.6 F 97.2 F L 97.4 F L Pulse Rate 101 H 97 H 98 H Respiratory Rate 15 16 16 Blood Pressure 125/61 115/47 L 124/67 Pulse Oximetry 91 95 95 10/15/20 13:30 10/15/20 14:00 10/15/20 15:30 Temperature 97.3 F L 97.3 F L 96.6 F L Pulse Rate 100 H 103 H 101 H Respiratory Rate 16 18 20 Blood Pressure 119/61 130/59 L 130/64 Pulse Oximetry 95 97 93 Oxygen Delivery Method Room Air Oxygen Flow Rate 0 Const General: cooperative, healthy appearing and comfortable GI Inspection: incision (Clean, dry, intact, covered with bandages) Palpation: soft and No tender Skin General: no rashes or lesions noted Objective Labs Result Diagrams: 10/15/20 07:45 10/15/20 07:45 Labs: Laboratory Results - last 24 hr 10/15/20 10/15/20 10/15/20 07:45 07:45 07:45 WBC 7.7 RBC 4.53 Hgb 13.1 Hct 39.8 MCV 87.8 MCH 29.0 MCHC 33.0 RDW 13.7 Plt Count 446 H Neut % (Auto) 68.4 Lymph % (Auto) 22.7 L [place] % (Auto) 5.6 Eos % (Auto) 2.0 Baso % (Auto) 1.3 Neut # (Auto) 5300 Lymph # (Auto) 1800 [place] # (Auto) 400 Eos # (Auto) 200 Baso # (Auto) 100 Sodium 139 Potassium 4.6 Chloride 104 Carbon Dioxide 30 BUN 16 Creatinine 0.54 Estimated GFR > 60.0 BUN/Creatinine Ratio 29.6 H Glucose 110 H Calcium 9.4 Blood Type O Positive Antibody Screen Negative [facility] Medical History Depression (~2016) Elevated blood sugar Elevated platelet count Fractures (~2002) Hand joint stiff (2016) Hand pain (2016) Heavy menses (2017) Hypertension (2006) Iron deficiency anemia (10/2019) Irregular menstrual cycle (~2017) Mixed hyperlipidemia Painful menstrual periods (~2017) Pet allergy (09/2019) Positive JOSE ALBERTO (antinuclear antibody) Prediabetes (08/2020) Tobacco abuse Vision disorder Surgical History Anesthesia History of section History of tubal ligation (~02/28/05) Family History Mother Cancer History of heart disease Stroke Social History household members: spouse and children Smoking Status: Current every day smoker second hand exposure: No alcohol intake: never substance use type: does not use Assessment & Plan Assessment & Plan narrative: This patient is recovering well, meeting postoperative goals and stable for her strongly desired discharge home. We discussed precautions for return at length, and the patient and her partner vocalized understanding. We discussed her p.o. pain control regimen, and the patient and her partner vocalized understanding. The plan to follow-up in 1-2 weeks for an incision check in clinic. Given that the patient was not postmenopausal and that she had her ovaries removed, we discussed the risk of severe symptoms of surgical menopause. The patient smokes and has other risk factors for hormone replacement therapy, we discussed the increased risk of stroke and VTE in particular. Smoking is not an absolute contraindication to hormone replacement therapy, but we discussed that the transdermal preparation has a lower risk of both of these side effects than oral estrogen, that she does not require progesterone, and that I would start on a lower dose as the effect is somewhat dose dependent. We discussed that if she has severe symptoms of menopause, her dose could be titrated up as needed.
== END 2020-10-15 18:55 | disposition home or self-care (01) ==
LOC: OR 06:46 → AC 06:47
PROVIDERS: PCP Nurse Practitioner Family; Referring Provider Nurse Practitioner Family; Visit Provider Obstetrics & Gynecology
PROC: 0UT94ZL Resection of Uterus, Supracervical, Percutaneous Endoscopic Approach (ICD-10-PCS; CPT 58542; principal; 2020-10-15 07:45)
DX: N93.9 Abnormal uterine and vaginal bleeding, unspecified (principal); D25.9 Leiomyoma of uterus, unspecified; N73.6 Female pelvic peritoneal adhesions (postinfective); I10 Essential (primary) hypertension; F17.210 Nicotine dependence, cigarettes, uncomplicated; N84.0 Polyp of corpus uteri
CPT/HCPCS: 58542; 80048; 82962; 85025; 86850; 86900; 86901; 99406; J0131; J0330; J0690; J1100; J1170; J1885; J2405; J2704; J2795; J3010

== ENCOUNTER → 2020-11-06 16:20 | Outpatient (CLI) | payer OTHER, SELFPAY ==
[2020-10-15 06:59] VITALS: BMI 31.2
[2020-11-06] MEDS: COVID-19 VACC #2, MRNA(MOD) 100 MCG/0.5 ML VIAL IM (16:25)
== END ==
PROVIDERS: PCP Nurse Practitioner Family; Visit Provider Internal Medicine
DX: Z23 Encounter for immunization (principal)
CPT/HCPCS: 0012A; 91301

== ENCOUNTER → 2021-01-03 08:30 | Outpatient (CLI) | payer OTHER, SELFPAY ==
[2020-10-15 06:59] VITALS: BMI 31.2
[2021-01-03 09:06] LABS: COVID19 -Nasal RAPID Negative (Negative)
== END ==
PROVIDERS: PCP Nurse Practitioner Family; Visit Provider Family Medicine
DX: R05 Cough (principal); Z20.822 Contact with and (suspected) exposure to COVID-19
CPT/HCPCS: 87635

== ENCOUNTER 2021-02-28 09:29 | Emergency (ER) | payer OTHER, SELFPAY ==
[2020-10-15 06:59] VITALS: BMI 31.2
[2021-02-28] VITALS (9 sets, daily range): BP systolic 131–167; BP diastolic 60–76; PULSE 67–91; RESP 12–19; TEMP 36.5; O2SAT 95–98; BMI 30.2
--- NOTE | 2021-02-28 09:43 | DI.US.S_ITS ---
PROCEDURE: US ABDOMEN LIMITED INDICATIONS: RUQ PAIN TECHNIQUE: Real-time focused scanning was performed of the abdomen, with image documentation. COMPARISON: None. FINDINGS: Increased hepatic parenchymal echogenicity indicative of at least moderate hepatic steatosis. No focal hepatic mass. No intrahepatic or extrahepatic biliary ductal dilatation. Normally distended gallbladder without wall thickening, pericholecystic fluid, sludge, or gallstone. Visualized portions of the pancreas are within normal limits. IMPRESSION: At least moderate severity hepatic steatosis. No findings of cholecystitis or cholelithiasis. Dictated by: Pepe Kumar M.D. on 02/28/2021 at 10:21 Approved by: Pepe Kumar M.D. on 02/28/2021 at 10:21
[2021-02-28 09:48] LABS: Add Manual Diff / Slide Review NO; Basophils Absolute Auto 100 /uL (0-100); Basophils Percent Auto 0.7 % (0-2); Eosinophils Absolute Auto 200 /uL (0-450); Eosinophils Percent Auto 2.2 % (2-4); Hematocrit 40.7 % (36-46); Hemoglobin 13.9 g/dL (12.0-16.0); Lymphocytes Absolute Auto 1900 /uL (1100-4500); Mean Corpuscular HGB Conc 34.1 % (30-36); Mean Corpuscular Hemoglobin 29.3 PG (26-34); Mean Corpuscular Volume 85.9 fL (80-100); Monocytes Absolute Auto 600 /uL (0-900); Monocytes Percent Auto 6.4 % (3-14); Neutrophils Absolute Auto 6200 /uL (1500-7000); Neutrophils Percent Auto 69.7 % (50-75); Platelet Count 433 X10^3/uL (150-400); Red Blood Cell Count 4.74 X10^6/uL (4.0-5.2); Red Cell Distribution Width 13.3 % (11.6-14.8); White Blood Cell Count 8.9 X10^3/uL (4.5-11.0)
--- NOTE | 2021-02-28 09:49 | ED.GENADULT ---
HPI - General Adult General Chief complaint: Abdominal Pain Stated complaint: Abdominal Pain Time Seen by Provider: 02/28/21 09:38 Source: patient Mode of arrival: Ambulatory Limitations: no limitations History of Present Illness HPI narrative: Patient is a 55-year-old female who came into the emergency department today for epigastric/right upper quadrant abdominal discomfort. She has had symptoms like this off and on for the past several weeks/months. She does take a [id number] ?stomach pill ?for this. It sounds like a reflux medication. She states that normally this medicine will help. She woke up this morning having discomfort. She took 1 of her medications and improved things and then ate breakfast this morning and the pain significantly worsened. No fevers. Some nausea but no vomiting. No change in bowel habits. No urinary symptoms. Has had a total hysterectomy otherwise no other abdominal surgeries. Related Data Home Medications Medication Instructions Recorded Confirmed multivitamin 1 tab PO DAILY 08/17/19 01/14/21 biotin 1 mg capsule 1 mg PO DAILY 07/25/20 01/14/21 Previous Rx's Medication Instructions Recorded sertraline 50 mg tablet 50 mg PO DAILY #90 tab 08/28/20 lisinopril 20 mg tablet 20 mg PO DAILY #90 tab 10/09/20 estradiol 1 patch TRANSDERMAL 2XW #8 ea 10/15/20 ibuprofen 600 mg PO Q6H PRN #20 tab 10/15/20 azithromycin 250 mg tablet See Rx Instructions PO .COMPLEX #6 01/14/21 tab codeine 10 mg-guaifenesin 100 mg/5 10 ml PO Q4-6H PRN #120 ml 01/14/21 mL oral liquid albuterol sulfate 90 mcg/actuation 2 puff INHALATION Q3-4H PRN #8.5 01/31/21 aerosol inhaler gram esomeprazole magnesium [Nexium] 20 mg PO DAILY #30 cap 02/28/21 sucralfate [Carafate] 1 g PO QACHS #90 tab 02/28/21 Allergies Allergy/AdvReac Type Severity Reaction Status Date / Time Barbiturates Allergy Severe anaphylaxis Verified 01/14/21 15:10 meperidine [From Demerol] Allergy Verified 02/28/21 09:40 simvastatin AdvReac Intermediate Myalgia Verified 01/14/21 15:10 Review of Systems Constitutional Constitutional: Reports system reviewed and no additional complaints, except as documented Cardiovascular Cardiovascular: Reports system reviewed and no additional complaints, except as documented Respiratory Respiratory: Reports system reviewed and no additional complaints, except as documented Gastrointestinal Gastrointestinal: Reports abdominal pain, Denies constipation, Denies diarrhea, Reports nausea and Denies vomiting Genitourinary Genitourinary: Reports system reviewed and no additional complaints, except as documented Musculoskeletal Musculoskeletal: Denies back pain Integumentary/Breasts Skin/Breast: Denies rash Neurologic Neurologic: Reports system reviewed and no additional complaints, except as documented Endocrine Endocrine: Reports system reviewed and no additional complaints, except as documented Hematologic/Lymphatic On Anticoagulants: No Allergic/Immunologic Allergic/Immunologic: Reports system reviewed and no additional complaints, except as documented Patient History Medical History Acute sinusitis Depression (~2016) Elevated blood sugar Elevated platelet count Fractures (~2002) Hand joint stiff (2016) Hand pain (2016) Heavy menses (2017) Hypertension (2006) Iron deficiency anemia (10/2019) Irregular menstrual cycle (~2017) Mixed hyperlipidemia Painful menstrual periods (~2017) Pet allergy (09/2019) Positive JOSE ALBERTO (antinuclear antibody) Prediabetes (08/2020) Tobacco abuse Vision disorder Surgical History Anesthesia History of section History of tubal ligation (~02/28/05) Family History Mother Cancer History of heart disease Stroke Social History household members: spouse and children Smoking Status: Current every day smoker second hand exposure: No alcohol intake: never substance use type: does not use Smoking Status: Current every day smoker tobacco type: cigarettes Substance Use Type: does not use Exam Initial Vital Signs Initial Vital Signs: Vital Signs Temperature 97.7 F 02/28/21 09:30 Pulse Rate 91 H 02/28/21 09:30 Respiratory Rate 18 02/28/21 09:30 Blood Pressure 167/76 H 02/28/21 09:30 Pulse Oximetry 98 02/28/21 09:30 Const General: cooperative and No comfortable (Uncomfortable.) Limitations: mental status not altered HENMT Head: normal to inspection and normocephalic Resp Effort & Inspection: normal respiratory effort Auscultation: clear to auscultation bilaterally Cardio Rate: regular rate Rhythm: regular rhythm GI Inspection: non-distended Palpation: soft, guarding and tender (Epigastric region) Back/Spine/Pelvis Back: No CVA tenderness Skin Lesions: no lesions Rashes: no rashes Neuro General: patient alert and patient awake Cognition: normal cognition Speech: speech normal Extrem General: normal to inspection and capillary refill normal Psych Appearance: grossly normal and well kempt Course Orders Ordered: ED Orders 02/28/21 09:38 EKG-12 Lead Stat 02/28/21 09:40 Complete Blood Count AUTO DIFF Stat Comprehensive Metabolic Panel Stat Lipase Stat Partial Thromboplastin Time Stat Prothrombin Time INR Stat 02/28/21 09:43 US abdomen limited Stat 02/28/21 10:37 CT abdomen pelvis w con Stat Discontinued Medications Al Hydrox/Mg Hydrox/Simethicone 20 ml/ Lidocaine HCl 15 ml 0 ml PO NOW ONE Stop: 02/28/21 09:50 Last Admin: 02/28/21 09:58 Dose: 30 ml Documented by: CRISELDA Sodium Chloride (Normal Saline 0.9%) 1,000 mls @ 1,000 mls/hr IV BOLUS ONE Stop: 02/28/21 11:36 Last Admin: 02/28/21 10:40 Dose: 1,000 mls/hr Documented by: CRISELDA Morphine Sulfate (Morphine 4 Mg/Ml Inj) 4 mg IV NOW ONE Stop: 02/28/21 11:18 Last Admin: 02/28/21 11:33 Dose: 4 mg Documented by: Ondansetron HCl (Ondansetron 4 Mg/2 Ml Inj) 4 mg IV NOW ONE Stop: 02/28/21 09:50 Last Admin: 02/28/21 09:58 Dose: 4 mg Documented by: CRISELDA Pantoprazole Sodium (Pantoprazole 40 Mg Vial) 40 mg IV NOW ONE Stop: 02/28/21 09:50 Last Admin: 02/28/21 09:58 Dose: 40 mg Documented by: CRISELDA Vital Signs Vital signs: Vital Signs - 8 hr 02/28/21 09:30 02/28/21 09:41 02/28/21 10:00 Temperature 97.7 F Pulse Rate 91 H 85 82 Respiratory Rate 18 Blood Pressure 167/76 H Pulse Oximetry 98 97 97 02/28/21 10:30 Temperature Pulse Rate 67 Respiratory Rate 13 Blood Pressure Pulse Oximetry 95 Medical Decision Making Lab Data Lab results reviewed: Yes I reviewed the patient's lab results. Result diagrams: 02/28/21 09:40 02/28/21 09:40 Labs: Lab Results 02/28/21 02/28/21 02/28/21 Range/Units 09:40 09:40 09:40 WBC 8.9 (4.5-11.0) X10^3/uL RBC 4.74 (4.0-5.2) X10^6/uL Hgb 13.9 (12.0-16.0) g/dL Hct 40.7 (36-46) % MCV 85.9 (80-100) fL MCH 29.3 (26-34) PG MCHC 34.1 (30-36) % RDW 13.3 (11.6-14.8) % Plt Count 433 H (150-400) X10^3/uL Neut % (Auto) 69.7 (50-75) % Lymph % (Auto) 21.0 L (25-40) % [place] % (Auto) 6.4 (3-14) % Eos % (Auto) 2.2 (2-4) % Baso % (Auto) 0.7 (0-2) % Neut # (Auto) 6200 (4569-3075) /uL Lymph # (Auto) 1900 (2946-9648) /uL [place] # (Auto) 600 (0-900) /uL Eos # (Auto) 200 (0-450) /uL Baso # (Auto) 100 (0-100) /uL PT 11.3 (10.1-12.7) SECONDS INR 1.0 (0.9-1.3) APTT 43 H (26.4-36.2) SECONDS Sodium 139 (137-145) mmol/L Potassium 4.5 (3.4-5.1) mmol/L Chloride 102 (98-107) mmol/L Carbon Dioxide 26 (22-32) mmol/L BUN 13 (7-17) mg/dL Creatinine 0.59 (0.52-1.04) mg/dL Estimated GFR > 60.0 (>60) mL/min BUN/Creatinine Ratio 22.0 (6-22) Glucose 111 H (70-100) mg/dL Calcium 10.5 H (8.4-10.2) mg/dL Total Bilirubin 0.5 (0.2-1.3) mg/dL AST 40 H (14-36) IU/L ALT 55 H (<35) IU/L Alkaline Phosphatase 102 (38-126) U/L Total Protein 8.0 (6.3-8.2) g/dL Albumin 4.8 (3.5-5.0) g/dL Globulin 3.2 (1.7-4.1) g/dL Albumin/Globulin Ratio 1.5 (1.0-2.8) Lipase 91 (23-300) U/L Urine Dip Bedside Urine Glucose Negative Bedside Urine Bilirubin - Negative Bedside Urine Ketone - Negative Urine Specific [place] 1.010 Bedside Urine Occult Blood - Negative Bedside Urine pH 7.0 Bedside Urine Protein - Negative Bedside Urine Urobilinogen - Negative Bedside Urine Nitrite - Negative Bedside Urine Leukocytes - Negative Esterase Point of care testing: Urine Dip Bedside Urine Glucose Negative Bedside Urine Bilirubin - Negative Bedside Urine Ketone - Negative Urine Specific [place] 1.010 Bedside Urine Occult Blood - Negative Bedside Urine pH 7.0 Bedside Urine Protein - Negative Bedside Urine Urobilinogen - Negative Bedside Urine Nitrite - Negative Bedside Urine Leukocytes - Negative Esterase Imaging Data US - abdomen: Radiologist's Impression: [address] [id number] ReportSigned Patient: Marly Bonilla [facility]#: [id number]: 1965Acct:[id number]/Sex: 55 / FDate of Service: 02/28/21Loc: EDAccession Number: [id number] Procedure: US abdomen limited Ordering Provider: Anibal Post D.O. PROCEDURE: US ABDOMEN LIMITED INDICATIONS: RUQ PAIN TECHNIQUE: Real-time focused scanning was performed of the abdomen, with image documentation. COMPARISON: None. FINDINGS: Increased hepatic parenchymal echogenicity indicative of at least moderate hepatic steatosis. No focal hepatic mass. No intrahepatic or extrahepatic biliary ductal dilatation. Normally distended gallbladder without wall thickening, pericholecystic fluid, sludge, or gallstone. Visualized portions of the pancreas are within normal limits. IMPRESSION: At least moderate severity hepatic steatosis. No findings of cholecystitis or cholelithiasis. Dictated by: Pepe Kumar M.D. on 02/28/2021 at 10:21 Approved by: Pepe Kumar M.D. on 02/28/2021 at 10:21 CT scan - abdomen/pelvis: Radiologist's Impression: [address] [id number] Scan ReportSigned Patient: Marly Bonilla [facility]#: [id number]: 1965Acct:[id number]/Sex: 55 / FDate of Service: 02/28/21Loc: EDAccession Number: [id number] Procedure: CT abdomen pelvis w con Ordering Provider: Anibal Post D.O. PROCEDURE: CT ABDOMEN PELVIS W CON INDICATIONS: Epigastric abdominal pain TECHNIQUE: After the administration of intravenous contrast, 5 mm thick sections acquired from the diaphragm to the symphysis. 5 mm coronal and sagittal reformats were acquired. For radiation dose reduction, the following was used: automated exposure control, adjustment of mA and/or kV according to patient size. COMPARISON: [facility], , ABDOMEN PELVIS WWO CON, 12/22/2019, 15:53. FINDINGS: Image quality: Excellent. ABDOMEN: Lung bases: Lung bases are clear. Heart size is normal. Solid organs: Liver is enlarged and demonstrates diffusely decreased density. Gallbladder is contracted. Biliary system is non dilated. Pancreas enhances normally. Spleen is normal in size and enhancement. No adrenal nodules. Kidneys demonstrate normal size and enhancement, without hydronephrosis. Peritoneum and bowel: Diverticulosis of the descending and sigmoid colon. Sigmoid colon appears moderately thickened. Appendix is not seen. No evidence of appendicitis. Bowel loops demonstrate otherwise normal wall thickness and caliber. No free fluid or air. Nodes and vessels: No retroperitoneal or mesenteric adenopathy by size criteria. Aorta and inferior vena cava are normal in size. Miscellaneous: No ventral hernias. PELVIS: Genitourinary: Bladder wall thickness is normal. Hysterectomy has been performed, new since the prior examination. Miscellaneous: No inguinal hernias or adenopathy. Bones: No suspicious bony lesions. No vertebral body compression fractures. IMPRESSION: 1. No acute process. 2. Hepatic steatosis. 3. Appendix not seen. No evidence of appendicitis. 4. Thickening versus suboptimal distension of the sigmoid colon. Initial further assessment with colonoscopy is recommended to exclude underlying neoplasm. Dictated by: Ronit Schmitz M.D. on 02/28/2021 at 11:20 Approved by: Ronit Schmitz M.D. on 02/28/2021 at 11:24 ECG Data Attestation: I personally reviewed and interpreted this ECG as follows: Prior ECG tracings: not available for review Interpretation: Sinus rhythm Ventricular rate 81 Normal axis Normal QRS Normal QTC No ST T wave changes MDM Narrative Medical decision making narrative: Patient's discomfort seems to be in the epigastric and bilateral upper quadrant region. Her labs are unremarkable to include her LFTs and lipase. Right upper quadrant ultrasound shows no gallbladder pathology. CT scan shows no surgical issues. Given her presentation and the fact that she states she has had this in the past and taking a pill which sounds like an H2 chun has improved her symptoms I suspect this is a stomach ulcer/reflux disease. No indication for antibiotics. No indication for surgical consultation. No indication for admission to the hospital. Will place the patient on Carafate and then have her start taking a PPI afterwards. She was instructed to contact her primary doctor for follow-up to discuss the indications for referral to see Gastroenterology and possible upper endoscopy. She was given strict return precautions she expressed understanding and agreement. Discharge Plan Departure Patient Disposition: Home Clinical Impression: Abdominal pain Instructions: DI for Abdominal Pain-Adult, DI for Gastric Ulcer Activity Restrictions/Additional Instructions: Your ultrasound and labs and CT scanner very reassuring. There is no signs of any infection. Like we discussed I suspect that your symptoms today is related to reflux disease/gastric ulcer. Unfortunately we cannot definitively diagnose this without a endoscopy. I recommend you start taking the medications as directed. Contact your primary doctor to discuss further workup in a referral to see Gastroenterology. Return to the emergency department for any new or worsening symptoms. The medicines you were given today are to replace the ?stomach medicine ?that you have been taking. Prescriptions: New sucralfate [Carafate] 1 gram tablet 1 g PO QACHS Qty: 90 RF: 0 esomeprazole magnesium [Nexium] 20 mg capsule,delayed release(DR/EC) 20 mg PO DAILY Qty: 30 RF: 0 No Action multivitamin Tablet 1 tab PO DAILY RF: 0 lisinopril 20 mg tablet 20 mg PO DAILY Qty: 90 RF: 1 albuterol sulfate [Ventolin HFA] 90 mcg/actuation HFA aerosol inhaler 2 puff INHALATION Q3-4H PRN (Reason: shortness of breath or wheezing) Qty: 8.5 RF: 5 biotin 1 mg capsule 1 mg PO DAILY RF: 0 sertraline 50 mg tablet 50 mg PO DAILY Qty: 90 RF: 2 codeine-guaifenesin 10-100 mg/5 mL liquid 10 ml PO Q4-6H PRN (Reason: cough) Qty: 120 RF: 0 azithromycin 250 mg tablet See Rx Instructions PO .COMPLEX Qty: 6 RF: 0 ibuprofen 600 mg tablet 600 mg PO Q6H PRN (Reason: hysterectomy) Qty: 20 RF: 0 estradiol 0.025 mg/24 hr patch semiweekly 1 patch transdermal 2XW Qty: 8 RF: 3 Referrals: Leilani Grijalva ARNP [Primary Care Provider] -
[2021-02-28 09:52] LABS: Prothrombin Time 11.3 SECONDS (10.1-12.7)
[2021-02-28 09:55] LABS: PTT Partial Thromboplastin Tim 43 SECONDS (26.4-36.2)
[2021-02-28 09:58] LABS: Alanine Aminotransferase 55 IU/L (<35); Albumin 4.8 g/dL (3.5-5.0); Albumin Globulin Ratio 1.5 (1.0-2.8); Alkaline Phosphatase 102 U/L (38-126); Aspartate Aminotransferase 40 IU/L (14-36); Bilirubin Total 0.5 mg/dL (0.2-1.3); Blood Urea Nitrogen 13 mg/dL (7-17); Calcium 10.5 mg/dL (8.4-10.2); Carbon Dioxide 26 mmol/L (22-32); Chloride 102 mmol/L (98-107); Estimated Glomerular Filt Rate > 60.0 mL/min (>60); Globulin 3.2 g/dL (1.7-4.1); Glucose 111 mg/dL (70-100); HEMOLYSIS < 15 (0-50); Lipase 91 U/L (23-300); Potassium 4.5 mmol/L (3.4-5.1); Sodium 139 mmol/L (137-145)
[2021-02-28] MEDS: MAG HYDROX/ALUMINUM/SIMETH SUS 20 ML, LIDOCAINE VISCOUS 2% 15 ML PO (09:58)
[2021-02-28] MEDS: PANTOPRAZOLE 40 MG VIAL IV (09:58)
[2021-02-28] MEDS: ONDANSETRON 4 MG/2 ML INJ IV (09:58)
--- NOTE | 2021-02-28 10:37 | DI.CT.S_ITS ---
PROCEDURE: CT ABDOMEN PELVIS W CON INDICATIONS: Epigastric abdominal pain TECHNIQUE: After the administration of intravenous contrast, 5 mm thick sections acquired from the diaphragm to the symphysis. 5 mm coronal and sagittal reformats were acquired. For radiation dose reduction, the following was used: automated exposure control, adjustment of mA and/or kV according to patient size. COMPARISON: [facility], , MR ABDOMEN PELVIS [facility] CON, 12/22/2019, 15:53. FINDINGS: Image quality: Excellent. ABDOMEN: Lung bases: Lung bases are clear. Heart size is normal. Solid organs: Liver is enlarged and demonstrates diffusely decreased density. Gallbladder is contracted. Biliary system is non dilated. Pancreas enhances normally. Spleen is normal in size and enhancement. No adrenal nodules. Kidneys demonstrate normal size and enhancement, without hydronephrosis. Peritoneum and bowel: Diverticulosis of the descending and sigmoid colon. Sigmoid colon appears moderately thickened. Appendix is not seen. No evidence of appendicitis. Bowel loops demonstrate otherwise normal wall thickness and caliber. No free fluid or air. Nodes and vessels: No retroperitoneal or mesenteric adenopathy by size criteria. Aorta and inferior vena cava are normal in size. Miscellaneous: No ventral hernias. PELVIS: Genitourinary: Bladder wall thickness is normal. Hysterectomy has been performed, new since the prior examination. Miscellaneous: No inguinal hernias or adenopathy. Bones: No suspicious bony lesions. No vertebral body compression fractures. IMPRESSION: 1. No acute process. 2. Hepatic steatosis. 3. Appendix not seen. No evidence of appendicitis. 4. Thickening versus suboptimal distension of the sigmoid colon. Initial further assessment with colonoscopy is recommended to exclude underlying neoplasm. Dictated by: Ronit Schmitz M.D. on 02/28/2021 at 11:20 Approved by: Ronit Schmitz M.D. on 02/28/2021 at 11:24
[2021-02-28] MEDS: SODIUM CHLORIDE 0.9% 1,000 ML 1000 ML IV (10:40)
[2021-02-28] MEDS: MORPHINE 4 MG/ML INJ IV (11:33)
== END 2021-02-28 12:34 | disposition home or self-care (01) ==
PROVIDERS: Emergency Provider Emergency Medicine; PCP Nurse Practitioner Family
DX: R10.13 Epigastric pain (principal); R10.11 Right upper quadrant pain; R10.12 Left upper quadrant pain; R11.0 Nausea
CPT/HCPCS: 36415; 74177; 76705; 80053; 81003; 83690; 85025; 85610; 85730; 93005; 96361; 96374; 96375; 99284; C9113; J2270; J2405; Q9967

== ENCOUNTER 2021-03-15 11:08 | Emergency (ER) | payer OTHER, SELFPAY ==
[2020-10-15 06:59] VITALS: BMI 31.2
[2021-03-15] VITALS (13 sets, daily range): BP systolic 117–130; BP diastolic 56–63; PULSE 66–93; RESP 10–24; TEMP 36.6–36.8; O2SAT 94–99; BMI 27.3
--- NOTE | 2021-03-15 11:32 | DI.CT.S_ITS ---
PROCEDURE: CT HEAD/BRAIN WO CON INDICATIONS: syncope TECHNIQUE: Noncontrast 4.5 mm thick angled axial sections acquired from the foramen magnum to the vertex, with coronal and sagittal reformats. For radiation dose reduction, the following was used: automated exposure control, adjustment of mA and/or kV according to patient size. COMPARISON: None. FINDINGS: Image quality: Excellent. CSF spaces: Basal cisterns are patent. No extra-axial fluid collections. Ventricles are normal in size and shape. Brain: No midline shift. No intracranial masses or hemorrhage. [place]-white matter interface is normal. Skull and face: Calvarium and visualized facial bones are intact, without suspicious lesions. Sinuses: Visualized sinuses and mastoids are clear. IMPRESSION: No CT evidence of acute intracranial process. Dictated by: Lee Ann Roberts M.D. on 03/15/2021 at 12:20 Approved by: Lee Ann Roberts M.D. on 03/15/2021 at 12:21
--- NOTE | 2021-03-15 11:32 | DI.CT.S_ITS ---
PROCEDURE: CT ABDOMEN PELVIS W CON INDICATIONS: ab pain hernia midline TECHNIQUE: After the administration of intravenous contrast, 5 mm thick sections acquired from the diaphragm to the symphysis. 5 mm coronal and sagittal reformats were acquired. For radiation dose reduction, the following was used: automated exposure control, adjustment of mA and/or kV according to patient size. COMPARISON: [facility], MR, MR ABDOMEN PELVIS WWO CON, 12/22/2019, 15:53. [facility], US, US ABDOMEN LIMITED, 02/28/2021, 10:03. [facility], US, US PELVIC COMPLETE, 08/14/2020, 9:21. [facility], CT, CT ABDOMEN PELVIS W CON, 02/28/2021, 11:01. FINDINGS: Image quality: Excellent. ABDOMEN: Lung bases: Lung bases are clear. Heart size is normal. Solid organs: There is severe hepatic steatosis. A 0.7 cm cyst is seen in segment 4. Liver is normal in size and enhancement. Gallbladder is normal. Biliary system is non dilated. Pancreas enhances normally. Spleen is normal in size and enhancement. No adrenal nodules. Kidneys demonstrate normal size and enhancement, without hydronephrosis. Peritoneum and bowel: Bowel loops demonstrate normal wall thickness and caliber. Extensive colonic diverticulosis. There is mild thickening of sigmoid colon suggesting mild diverticulitis. No fluid collection to suggest abscess. No free fluid or air. Nodes and vessels: No retroperitoneal or mesenteric adenopathy by size criteria. Aorta and inferior vena cava are normal in size. [id number] atherosclerosis. Miscellaneous: There is mild thickening and stranding in the lower anterior abdominal wall just above the urinary bladder, similar in appearance when compared to 02/28/2021. PELVIS: Genitourinary: Bladder wall thickness is normal. Uterus is small, probably remnant hysterectomy stump. Ovaries are not well seen. Miscellaneous: No inguinal hernias or adenopathy. Bones: No suspicious bony lesions. No vertebral body compression fractures. IMPRESSION: 1. Extensive colonic diverticulosis. No pericolonic stranding to suggest acute diverticulitis. 2. There is appearance of thickening of sigmoid colon. In the absence of oral contrast, the finding could be caused by artifact but a mass in the sigmoid colon cannot be excluded. Suggest colonoscopy for follow-up evaluation. 3. Severe hepatic steatosis. 4. Mild thickening and stranding in the suprapubic area just above the urinary bladder, similar in appearance when compared to 02/28/2021. It is most likely secondary to postsurgical scar or inflammation. The examination was not performed without Valsalva, therefore, a small reducible ventral hernia could be present but just not well seen when the patient was in supine position. If clinically indicated, localized ultrasound with and without Valsalva would be helpful. The result was discussed with Dr. Bailey. Dictated by: Arnie Mcmahon M.D. on 03/15/2021 at 13:07 Approved by: Arnie Mcmahon M.D. on 03/15/2021 at 13:34
[2021-03-15 11:43] LABS: Add Manual Diff / Slide Review NO; Basophils Absolute Auto 0 /uL (0-100); Basophils Percent Auto 0.5 % (0-2); Eosinophils Absolute Auto 200 /uL (0-450); Eosinophils Percent Auto 1.7 % (2-4); Hematocrit 41.7 % (36-46); Lymphocytes Absolute Auto 2200 /uL (1100-4500); Lymphocytes Percent Auto 22.9 % (25-40); Mean Corpuscular HGB Conc 33.6 % (30-36); Mean Corpuscular Hemoglobin 29.2 PG (26-34); Mean Corpuscular Volume 86.7 fL (80-100); Monocytes Absolute Auto 600 /uL (0-900); Monocytes Percent Auto 5.8 % (3-14); Neutrophils Absolute Auto 6600 /uL (1500-7000); Neutrophils Percent Auto 69.1 % (50-75); Platelet Count 440 X10^3/uL (150-400); Red Blood Cell Count 4.81 X10^6/uL (4.0-5.2); Red Cell Distribution Width 13.6 % (11.6-14.8); White Blood Cell Count 9.5 X10^3/uL (4.5-11.0)
[2021-03-15] MEDS: SODIUM CHLORIDE 0.9% 1,000 ML 1000 ML IV (11:43)
--- NOTE | 2021-03-15 11:43 | ED.DIZZY ---
HPI - Dizziness General Chief Complaint: Syncope Stated Complaint: got dizzy Time Seen by Provider: 03/15/21 11:32 Source: patient Mode of arrival: Wheelchair Limitations: no limitations History of Present Illness HPI Narrative: Patient is a 55-year-old female who has history of hypertension and known abdominal hernia secondary to abdominal hysterectomy presenting after a syncopal episode. 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 She is persistently dizzy she feels if he still moves circles on the curtains moving. She has no numbness tingling or weakness. She was had a brief loss of consciousness. She has no nausea or vomiting. She is actually supposed to see surgery today for hernia evaluation. She is having bowel movements she is passing gas she feels nauseous but no vomiting. She previously was feeling well she said yesterday was a good day. MD complaint: dizziness Onset (ago): minute(s) Timing: sudden onset Description: sense of movement and room spinning History of similar episodes: No History of trauma: No Related Data Home Medications Medication Instructions Recorded Confirmed multivitamin 1 tab PO DAILY 08/17/19 03/12/21 biotin 1 mg capsule 1 mg PO DAILY 07/25/20 03/12/21 Previous Rx's Medication Instructions Recorded sertraline 50 mg tablet 50 mg PO DAILY #90 tab 08/28/20 lisinopril 20 mg tablet 20 mg PO DAILY #90 tab 10/09/20 ibuprofen 600 mg PO Q6H PRN #20 tab 10/15/20 albuterol sulfate 90 mcg/actuation 2 puff INHALATION Q3-4H PRN #8.5 03/12/21 aerosol inhaler gram meloxicam [Mobic] 15 mg PO DAILY #30 tab 03/15/21 ondansetron 4 mg PO Q8H PRN #10 tab 03/15/21 Allergies Allergy/AdvReac Type Severity Reaction Status Date / Time Barbiturates Allergy Severe anaphylaxis Verified 03/15/21 11:24 meperidine [From Demerol] Allergy Verified 03/15/21 11:24 simvastatin AdvReac Intermediate Myalgia Verified 03/15/21 11:24 Review of Systems Review of Systems ROS Unobtainable: All systems reviewed & are unremarkable except as noted in HPI and below Constitutional Constitutional: Denies chills, Denies fever(s), Denies lethargy and Denies weakness Eyes Eyes: Denies change in vision, Denies eye discharge, Denies irritation and Denies loss of vision ENT Ears, Nose, Mouth, and Throat: Reports vertigo and Reports dizziness Cardiovascular Cardiovascular: Denies chest pain, Reports syncope, Denies dyspnea on exertion and Denies orthopnea Respiratory Respiratory: Denies cough, Denies hemoptysis and Denies dyspnea on exertion Gastrointestinal Gastrointestinal: Reports as per HPI, Reports abdominal pain, Denies change in bowel habits, Denies diarrhea, Reports nausea and Denies vomiting Musculoskeletal Musculoskeletal: Denies back pain and Denies myalgias Integumentary/Breasts Skin/Breast: Denies pruritus, Denies erythema, Denies rash and Denies wounds Neurologic Neurologic: Reports vertigo, Reports dizziness, Reports syncope, Denies loss of vision and Denies weakness Patient History Medical History Acute sinusitis Depression (~2016) Elevated blood sugar Elevated platelet count Fractures (~2002) GERD (gastroesophageal reflux disease) Hand joint stiff (2016) Hand pain (2016) Heavy menses (2017) Hernia Hypertension (2006) Iron deficiency anemia (10/2019) Irregular menstrual cycle (~2017) Mixed hyperlipidemia Painful menstrual periods (~2017) Pet allergy (09/2019) Positive JOSE ALBERTO (antinuclear antibody) Prediabetes (08/2020) Tobacco abuse Vision disorder Surgical History Anesthesia History of section History of tubal ligation (~02/28/05) Family History Mother Cancer History of heart disease Stroke Social History household members: spouse and children Smoking Status: Current every day smoker second hand exposure: No alcohol intake: never substance use type: does not use Smoking Status: Current every day smoker tobacco type: cigarettes alcohol intake frequency: holidays/special occasions only Substance Use Type: does not use Exam Initial Vital Signs Initial Vital Signs: Vital Signs Temperature 97.9 F 03/15/21 11:15 Pulse Rate 84 03/15/21 11:15 Respiratory Rate 15 03/15/21 11:15 Blood Pressure 130/63 06/11/21 11:15 Pulse Oximetry 95 03/15/21 11:15 GENERAL: Tearful alert 55-year-old female and in no acute distress. HEENT: Head atraumatic,EOMI, pupils reactive, mild nystagmus dizziness reproduced with extraocular muscle movement face symmetric, moist mucous membranes CARDIOVASCULAR: Regular rate and rhythm without murmurs, rubs or gallops. RESPIRATORY: Breath sounds equal bilaterally, no wheezes rales or rhonchi. ABDOMEN: Soft, nontender. Normoactive bowel sounds all 4 quadrants. No guarding or rebound. EXTREMITIES: Normal range of motion, no clubbing or edema. Neurovascularly intact NEUROLOGICAL: Alert and oriented x4.Normal gait and speech. Cranial nerves II through XII grossly intact. Good [id number]-zn-yttl, good fipx-zn-jqxg, strength equal bilaterally, no dysarthria or aphasia, sensation in tact to soft touch bilaterally, no visual changes, no facial droop SKIN: Warm, dry, no laceration, no petechiae, no rashes or lesions. Scores NIH Stroke Scale Level of Conciousness: Alert, keenly responsive Ask month/age: Answers both questions correctly. Open/close eyes, close hand: Performs both tasks correctly Best gaze horizontal: Normal Visual major: No visual loss Facial palsy: Normal symetrical movement Left arm drift: No drift for full 10 sec Right arm drift: No drift for full 10 sec Left leg drift: No drift for full 5 sec Right leg drift: No drift for full 5 sec Limb ataxia: Absent Sensory on face/arms/legs: Normal, no sensory loss Best language: No aphasia, normal Dysarthria: Normal Extinction or inattention: No abnormality Total NIH Stroke scale score: 0 Course Orders Ordered: ED Orders 03/15/21 11:22 Complete Blood Count AUTO DIFF Stat Comprehensive Metabolic Panel Stat Lactate (Lactic Acid) Stat Troponin & CK Cardiac Panel Stat 03/15/21 11:32 CT abdomen pelvis w con Stat CT head/brain wo con Stat Discontinued Medications Hydromorphone HCl (Hydromorphone 0.5 Mg Inj) 0.5 mg IV NOW ONE Stop: 03/15/21 12:45 Last Admin: 03/15/21 12:59 Dose: 0.5 mg Documented by: NEIL Sodium Chloride (Normal Saline 0.9%) 1,000 mls @ 1,000 mls/hr IV CONT ALE Last Infusion: 03/15/21 13:09 Dose: 0 mls/hr Documented by: Admin: 03/15/21 11:43 Dose: 1,000 mls/hr Documented by: JAEL Ketorolac Tromethamine (Ketorolac 30 Mg/Ml Vial) 30 mg IV NOW ONE Stop: 03/15/21 11:33 Last Admin: 03/15/21 11:45 Dose: 30 mg Documented by: JAEL Ondansetron HCl (Ondansetron 4 Mg/2 Ml Inj) 4 mg IV NOW ONE Stop: 03/15/21 11:33 Last Admin: 03/15/21 11:44 Dose: 4 mg Documented by: JAEL Vital Signs Vital signs: Vital Signs - 8 hr 03/15/21 11:15 03/15/21 11:16 03/15/21 11:24 Temperature 97.9 F Pulse Rate 93 H 90 83 Respiratory Rate 15 20 Blood Pressure 130/63 130/63 129/61 Pulse Oximetry 98 97 95 03/15/21 11:30 03/15/21 11:48 03/15/21 12:00 Temperature Pulse Rate 82 75 75 Respiratory Rate 17 19 14 Blood Pressure 118/60 127/61 Pulse Oximetry 96 95 96 03/15/21 12:30 03/15/21 13:00 03/15/21 13:03 Temperature Pulse Rate 78 72 71 Respiratory Rate 24 14 14 Blood Pressure 121/61 Pulse Oximetry 96 97 99 03/15/21 13:30 03/15/21 14:00 03/15/21 14:17 Temperature Pulse Rate 72 71 66 Respiratory Rate 10 L 10 L 13 Blood Pressure 117/56 L Pulse Oximetry 94 95 94 03/15/21 14:39 Temperature 98.2 F Pulse Rate Respiratory Rate Blood Pressure Pulse Oximetry MDM - Dizziness Lab Data Attestation: I reviewed the patient's lab results. Result diagrams: 03/15/21 11:22 03/15/21 11:22 Labs: Lab Results 03/15/21 03/15/21 03/15/21 Range/Units 11:22 11:22 11:22 WBC 9.5 (4.5-11.0) X10^3/uL RBC 4.81 (4.0-5.2) X10^6/uL Hgb 14.0 (12.0-16.0) g/dL Hct 41.7 (36-46) % MCV 86.7 (80-100) fL MCH 29.2 (26-34) PG MCHC 33.6 (30-36) % RDW 13.6 (11.6-14.8) % Plt Count 440 H (150-400) X10^3/uL Neut % (Auto) 69.1 (50-75) % Lymph % (Auto) 22.9 L (25-40) % [place] % (Auto) 5.8 (3-14) % Eos % (Auto) 1.7 L (2-4) % Baso % (Auto) 0.5 (0-2) % Neut # (Auto) 6600 (8703-2849) /uL Lymph # (Auto) 2200 (2067-9745) /uL [place] # (Auto) 600 (0-900) /uL Eos # (Auto) 200 (0-450) /uL Baso # (Auto) 0 (0-100) /uL Sodium 137 (137-145) mmol/L Potassium 4.2 (3.4-5.1) mmol/L Chloride 102 (98-107) mmol/L Carbon Dioxide 26 (22-32) mmol/L BUN 19 H (7-17) mg/dL Creatinine 0.57 (0.52-1.04) mg/dL Estimated GFR > 60.0 (>60) mL/min BUN/Creatinine Ratio 33.3 H (6-22) Glucose 120 H (70-100) mg/dL Lactate 1.1 (0.7-2.1) mmol/L Calcium 10.4 H (8.4-10.2) mg/dL Total Bilirubin 0.8 (0.2-1.3) mg/dL AST 34 (14-36) IU/L ALT 41 H (<35) IU/L Alkaline Phosphatase 93 (38-126) U/L Total Creatine Kinase 94 (30-135) U/L CK-MB (CK-2) TNP CK-MB (CK-2) Rel Index TNP Troponin I < 0.012 (0.01-0.034) ng/mL Total Protein 8.0 (6.3-8.2) g/dL Albumin 4.7 (3.5-5.0) g/dL Globulin 3.3 (1.7-4.1) g/dL Albumin/Globulin Ratio 1.4 (1.0-2.8) Point of Care Testing Glucose POC 120 Urine Dip Bedside Urine Glucose Negative Bedside Urine Bilirubin - Negative Bedside Urine Ketone - Negative Urine Specific [place] 1.010 Bedside Urine Occult Blood - Negative Bedside Urine pH 6 Bedside Urine Protein - Negative Bedside Urine Urobilinogen - Negative Bedside Urine Nitrite - Negative Bedside Urine Leukocytes - Negative Esterase Imaging Data CT scan - abdomen/pelvis: Radiologist's Impression: PROCEDURE: CT ABDOMEN PELVIS W CON INDICATIONS: ab pain hernia midline TECHNIQUE: After the administration of intravenous contrast, 5 mm thick sections acquired from the diaphragm to the symphysis. 5 mm coronal and sagittal reformats were acquired. For radiation dose reduction, the following was used: automated exposure control, adjustment of mA and/or kV according to patient size. COMPARISON: [facility], MR, MR ABDOMEN PELVIS WWO CON, 12/22/2019, 15:53. [facility], US, US ABDOMEN LIMITED, 02/28/2021, 10:03. [facility], US, US PELVIC COMPLETE, 08/14/2020, 9:21. [facility], CT, CT ABDOMEN PELVIS W CON, 02/28/2021, 11:01. FINDINGS: Image quality: Excellent. ABDOMEN: Lung bases: Lung bases are clear. Heart size is normal. Solid organs: There is severe hepatic steatosis. A 0.7 cm cyst is seen in segment 4. Liver is normal in size and enhancement. Gallbladder is normal. Biliary system is non dilated. Pancreas enhances normally. Spleen is normal in size and enhancement. No adrenal nodules. Kidneys demonstrate normal size and enhancement, without hydronephrosis. Peritoneum and bowel: Bowel loops demonstrate normal wall thickness and caliber. Extensive colonic diverticulosis. There is mild thickening of sigmoid colon suggesting mild diverticulitis. No fluid collection to suggest abscess. No free fluid or air. Nodes and vessels: No retroperitoneal or mesenteric adenopathy by size criteria. Aorta and inferior vena cava are normal in size. [id number] atherosclerosis. Miscellaneous: There is mild thickening and stranding in the lower anterior abdominal wall just above the urinary bladder, similar in appearance when compared to 02/28/2021. PELVIS: Genitourinary: Bladder wall thickness is normal. Uterus is small, probably remnant hysterectomy stump. Ovaries are not well seen. Miscellaneous: No inguinal hernias or adenopathy. Bones: No suspicious bony lesions. No vertebral body compression fractures. IMPRESSION: 1. Extensive colonic diverticulosis. No pericolonic stranding to suggest acute diverticulitis. 2. There is appearance of thickening of sigmoid colon. In the absence of oral contrast, the finding could be caused by artifact but a mass in the sigmoid colon cannot be excluded. Suggest colonoscopy for follow-up evaluation. 3. Severe hepatic steatosis. 4. Mild thickening and stranding in the suprapubic area just above the urinary bladder, similar in appearance when compared to 02/28/2021. It is most likely secondary to postsurgical scar or inflammation. The examination was not performed without Valsalva, therefore, a small reducible ventral hernia could be present but just not well seen when the patient was in supine position. If clinically indicated, localized ultrasound with and without Valsalva would be helpful. The result was discussed with Dr. Bailey. Dictated by: Arnie Mcmahon M.D. on 03/15/2021 at 13:07 CT scan - head: Radiologist's Impression: PROCEDURE: CT HEAD/BRAIN WO CON INDICATIONS: syncope TECHNIQUE: Noncontrast 4.5 mm thick angled axial sections acquired from the foramen magnum to the vertex, with coronal and sagittal reformats. For radiation dose reduction, the following was used: automated exposure control, adjustment of mA and/or kV according to patient size. COMPARISON: None. FINDINGS: Image quality: Excellent. CSF spaces: Basal cisterns are patent. No extra-axial fluid collections. Ventricles are normal in size and shape. Brain: No midline shift. No intracranial masses or hemorrhage. [place]-white matter interface is normal. Skull and face: Calvarium and visualized facial bones are intact, without suspicious lesions. Sinuses: Visualized sinuses and mastoids are clear. IMPRESSION: No CT evidence of acute intracranial process. Dictated by: Lee Ann Roberts M.D. on 03/15/2021 at 12:20 Approved by: Lee Ann Roberts M.D. on 03/15/2021 at 12:21 ECG Data Attestation: I personally reviewed and interpreted this ECG as follows: Prior ECG tracings: available for review Interpretation: Rhythm rate 82 p.r. interval 150 QRS [address] changes Q-wave noted in lead [address] elevations similar to previous EKG in 02/28/2021 [facility] Narrative Medical decision making narrative: Patient had intense abdominal pain and then had a syncopal episode and feels dizzy. Blood work head CT and abdominal CT actually are overall reassuring. CT of the abdomen does not show hernia but shows some stranding and extensive diverticulosis. She is possibly does have some outpouching when she stands but is difficult for me to appreciate, she was lying flat for CT so it is possible that she does have a hernia but not appreciated on CT. Dr. Frank updated patient's symptoms test results any on her abdomen outpatient. Patient was given Dilaudid for pain overall feeling much better. Discharge Plan Departure Patient Disposition: Home Clinical Impression: Syncope, vasovagal Instructions: DI for Syncope in Adults (Fainting) Activity Restrictions/Additional Instructions: *You have been diagnosed with syncope and abdominal pain *What to do: At this time he likely passed out due to severe pain in her abdomen. Fortunately there is no hernia appreciated on the CT scan. Nonetheless please follow-up with Dr. Frank as scheduled *Continue to take medications as directed Tylenol 650 mg every 4-6 hours if needed for tchr-bc-cljrmpsm pain Zofran 4 mg every 3 8 hours if needed for nausea or vomiting --> SENT TO [facility] IN [place] Mobic 15 mg once a day--DO NOT TAKE WITH ANY OTHER NSAIDS SUCH IBUPROFEN, NAPROXEN, ALEVE, ADVIL etc *Follow up with your primary care provider in 2-3 days *Return to ER if you should have increasing pain, persistent dizziness, recurrent passing out [or] any new, worsening or concerning symptoms Prescriptions: New ondansetron 4 mg tablet,disintegrating 4 mg PO Q8H PRN (Reason: nausea and vomiting) Qty: 10 RF: 0 meloxicam [Mobic] 15 mg tablet 15 mg PO DAILY Qty: 30 RF: 0 No Action multivitamin Tablet 1 tab PO DAILY RF: 0 lisinopril 20 mg tablet 20 mg PO DAILY Qty: 90 RF: 1 albuterol sulfate [Ventolin HFA] 90 mcg/actuation HFA aerosol inhaler 2 puff INHALATION Q3-4H PRN (Reason: shortness of breath or wheezing) Qty: 8.5 RF: 5 biotin 1 mg capsule 1 mg PO DAILY RF: 0 sertraline 50 mg tablet 50 mg PO DAILY Qty: 90 RF: 2 ibuprofen 600 mg tablet 600 mg PO Q6H PRN (Reason: hysterectomy) Qty: 20 RF: 0 Referrals: Leilani Grijalva ARNP [Primary Care Provider] - Juan Frank MD [Physician] - Stand Alone Forms: Work Release Note
[2021-03-15] MEDS: ONDANSETRON 4 MG/2 ML INJ IV (11:44)
[2021-03-15] MEDS: KETOROLAC 30 MG/ML VIAL IV (11:45)
[2021-03-15 11:48] LABS: Alanine Aminotransferase 41 IU/L (<35); Albumin 4.7 g/dL (3.5-5.0); Albumin Globulin Ratio 1.4 (1.0-2.8); Alkaline Phosphatase 93 U/L (38-126); Aspartate Aminotransferase 34 IU/L (14-36); BUN Creatinine Ratio 33.3 (6-22); Bilirubin Total 0.8 mg/dL (0.2-1.3); Blood Urea Nitrogen 19 mg/dL (7-17); Calcium 10.4 mg/dL (8.4-10.2); Carbon Dioxide 26 mmol/L (22-32); Chloride 102 mmol/L (98-107); Creatine Kinase 94 U/L (30-135); Estimated Glomerular Filt Rate > 60.0 mL/min (>60); Globulin 3.3 g/dL (1.7-4.1); Glucose 120 mg/dL (70-100); HEMOLYSIS 29 (0-50); Lactate (Lactic Acid) 1.1 mmol/L (0.7-2.1); Potassium 4.2 mmol/L (3.4-5.1); Sodium 137 mmol/L (137-145)
[2021-03-15 11:59] LABS: Troponin I < 0.012 ng/mL (0.01-0.034)
[2021-03-15] MEDS: HYDROMORPHONE 0.5 MG INJ IV (12:59)
--- NOTE | 2021-03-15 14:24 | PC.NURSE ---
Pt ambulated with and able to ambulate but is still feeling effects of sedation. Able to drink a glass of water. Wants to go home.
== END 2021-03-15 14:40 | disposition home or self-care (01) ==
PROVIDERS: Emergency Provider Emergency Medicine; PCP Nurse Practitioner Family
DX: R55 Syncope and collapse (principal); R42 Dizziness and giddiness; R10.9 Unspecified abdominal pain; R11.0 Nausea
CPT/HCPCS: 36415; 70450; 74177; 80053; 81003; 82550; 82962; 83605; 84484; 85025; 93005; 96361; 96374; 96375; 99284; J1170; J1885; J2405

== ENCOUNTER → 2021-03-27 15:02 | Outpatient (CLI) | payer OTHER, SELFPAY ==
[2020-10-15 06:59] VITALS: BMI 31.2
[2021-03-27 15:45] LABS: COVID19 -Nasal RAPID Negative (Negative)
== END ==
PROVIDERS: PCP Nurse Practitioner Family; Visit Provider Specialist
DX: Z20.822 Contact with and (suspected) exposure to COVID-19 (principal)
CPT/HCPCS: 87635; C9803

== ENCOUNTER 2021-03-28 14:18 | Day surgery (SDC) | payer OTHER, SELFPAY ==
[2020-10-15 06:59] VITALS: BMI 31.2
[2021-03-28] VITALS (11 sets, daily range): BP systolic 125–145; BP diastolic 62–82; PULSE 71–87; RESP 10–16; TEMP 36.2–36.7; O2SAT 92–100; BMI 30.2
[2021-03-28] MEDS: LACTATED RINGERS 1,000 ML 200 ML IV (14:49)
--- NOTE | 2021-03-28 15:32 | PM.PREOP ---
Pre-operative Note COVID-19 COVID-19 status: Negative Result date/Date tested (Pos, Neg/Pending): 03/27/21 Interval Note History & Physical reviewed/Exam performed by Physician: Yes Changes to H&P: No ASA Class (for procedural sedation): II
[2021-03-28] MEDS: fentaNYL 250 MCG/5 ML INJ IV (16:02)
[2021-03-28] MEDS: MIDAZOLAM 5 MG/5 ML VIAL IV (16:03)
--- NOTE | 2021-03-28 16:03 | PM.OP.ENDO ---
Operative Date/Time/Diagnoses Date of procedure: 03/28/21 Time of procedure: 16:03 Pre-op diagnosis: Abnormal CT scan with thickening of the sigmoid colon. Abdominal pain. Screening exam. Post-op diagnosis: same (Probable diverticulitis) Procedure & Clinicians Study performed: Colonoscopy abandoned. Flexible sigmoidoscopy to 30 cm. Same procedure as scheduled: No Indications: Evaluate abnormal CT scan finding and screen for colon cancer Surgeon: Juan Frank Procedure Notes SCOAP/Timeout: Performed Procedure in detail: Patient is placed in left lateral decubitus position underwent IV sedation direct about the surgeon consisting fentanyl and Versed. Digital exam was unremarkable. Scope was inserted through the rectum and advanced to about 30 cm. There was redness scattered in the visible portions of the sigmoid and the sigmoid was quite tortuous and there were very sharp turns. It seemed to be fixed down all of this being consistent with diverticulitis, which would also be consistent with the CT findings. Rather than risk further endoscopy be through a stiffened and abnormal colon I decided to remove the scope and treat her for diverticulitis. Patient tolerated the procedure well. Scope withdrawal time: Not applicable Sedation minutes: 6 Findings: diverticulitis Specimen(s): none sent Complications: none Post-procedure Recommendations: Start medication(s) (Antibiotics for diverticulitis) Plan for aftercare: Follow-up with me in 2 weeks. Follow up: weeks (To) Disposition: PACU
[2021-03-28 16:32] LABS: Add Manual Diff / Slide Review NO; Basophils Absolute Auto 100 /uL (0-100); Basophils Percent Auto 0.7 % (0-2); Eosinophils Absolute Auto 200 /uL (0-450); Eosinophils Percent Auto 1.7 % (2-4); Hematocrit 40.3 % (36-46); Hemoglobin 13.8 g/dL (12.0-16.0); Lymphocytes Absolute Auto 2000 /uL (1100-4500); Lymphocytes Percent Auto 22.4 % (25-40); Mean Corpuscular HGB Conc 34.3 % (30-36); Mean Corpuscular Hemoglobin 29.4 PG (26-34); Mean Corpuscular Volume 85.6 fL (80-100); Monocytes Absolute Auto 500 /uL (0-900); Monocytes Percent Auto 5.6 % (3-14); Neutrophils Absolute Auto 6400 /uL (1500-7000); Neutrophils Percent Auto 69.6 % (50-75); Platelet Count 403 X10^3/uL (150-400); Red Cell Distribution Width 13.6 % (11.6-14.8); White Blood Cell Count 9.1 X10^3/uL (4.5-11.0)
== END 2021-03-28 17:05 | disposition home or self-care (01) ==
PROVIDERS: PCP Nurse Practitioner Family; Referring Provider Specialist; Visit Provider Specialist
PROC: 0DJD8ZZ Inspection of Lower Intestinal Tract, Via Natural or Artificial Opening Endoscopic (ICD-10-PCS; CPT 45378; principal; 2021-03-28 15:15)
DX: R10.9 Unspecified abdominal pain (principal); R93.3 Abnormal findings on diagnostic imaging of other parts of digestive tract; F17.210 Nicotine dependence, cigarettes, uncomplicated
CPT/HCPCS: 45378; 85025; J2250; J3010

== ENCOUNTER → 2021-05-07 09:52 | Outpatient (CLI) | payer OTHER, SELFPAY ==
[2020-10-15 06:59] VITALS: BMI 31.2
[2021-05-07 11:27] LABS: COVID19 -Nasal RAPID Negative (Negative)
== END ==
PROVIDERS: PCP Nurse Practitioner Family; Referring Provider Specialist; Visit Provider Specialist
DX: Z20.822 Contact with and (suspected) exposure to COVID-19 (principal)
CPT/HCPCS: 87635; C9803

== ENCOUNTER 2021-05-08 12:16 | Day surgery (SDC) | payer OTHER, SELFPAY ==
[2020-10-15 06:59] VITALS: BMI 31.2
[2021-05-08] VITALS (18 sets, daily range): BP systolic 100–139; BP diastolic 45–76; PULSE 82–90; RESP 11–18; TEMP 36.4–37; O2SAT 93–97
[2021-05-08] MEDS: LACTATED RINGERS 1,000 ML 42 ML IV ×2 (13:09→14:55)
--- NOTE | 2021-05-08 13:23 | PM.PREOP ---
Pre-operative Note COVID-19 COVID-19 status: Negative Result date/Date tested (Pos, Neg/Pending): 05/07/21 Interval Note History & Physical reviewed/Exam performed by Physician: Yes Changes to H&P: No
--- NOTE | 2021-05-08 14:06 | SUR.OPER ---
Supine on padded OR bed, head on pillow, arms secured on padded arm boards at <90 degrees abduction, legs uncrossed, safety belt at thigh, tape over blanket over lower legs.
[2021-05-08] MEDS: CEFAZOLIN 1 GM VIAL 2 GM IV (14:11)
[2021-05-08] MEDS: BUPIVACAINE 0.25% (PF) VIAL 30 ML INJ (14:14)
--- NOTE | 2021-05-08 16:28 | SUR.PHASEI ---
Pt to PACU with anesth and Rn. Oral airway placed by anesthesia and oxygen placed via simple mask.
[2021-05-08] MEDS: fentaNYL 100 MCG/2 ML INJ IV (16:43)
[2021-05-08] MEDS: ONDANSETRON 4 MG/2 ML INJ IV (16:50)
[2021-05-08] MEDS: KETOROLAC 30 MG/ML VIAL IV ×2 (17:00→22:20)
[2021-05-08] MEDS: HYDROMORPHONE 2 MG INJ 0.5 MG IV (17:03)
--- NOTE | 2021-05-08 17:06 | PM.OP.1 ---
Operative Date/Time/Diagnoses Date of procedure: 05/08/21 Time of procedure: 17:06 Pre-op diagnosis: Incisional hernia Post-op diagnosis: same Procedure & Clinicians Procedure: Repair of hernia with underlay of mesh Same procedure as scheduled: Yes Surgeon: Juan Frank Click Yes if Unassisted: Yes Anesthesia Type: General Operative Notes Findings: Discrete defect in the fascia from prior hysterectomy. Closure Type: primary Specimen(s): none sent Prosthetic devices, grafts, tissues, transplants, or devices: 3 in x 6 in piece of Marlex mesh placed under the fascia in the extraperitoneal space Estimated Blood Loss (mL): 30 Blood products transfused: none Procedure in detail: The patient is placed supine on the operating room table underwent general endotracheal anesthesia. She was prepped and draped in the usual fashion. The hernia defect was palpable in the suprapubic area near the midline. I excised attenuated skin over it in ellipse. Hernia sac was readily identified and dissected from surrounding subcutaneous fat. I dissected down to the fascial edge and cleared the peritoneum under it circumferentially. This was dissected well back away from the edge. At no point did I violate the sac and enter the peritoneal cavity. After taking measurements I inserted a 3 x 6 in piece of mesh which was tacked at its periphery using sutures going down through fascia down through mesh up through mesh in up through fascia. The suture used was 0 Ethibonds. One sites sutured it circumferentially I closed the midline with [id number] interrupted 0 Ethibond suture. Subcu was irrigated and a drain placed in the subQ and brought out laterally. Was secured with a 3-0 nylon. The subQ was closed with interrupted 3-0 Vicryl and skin was closed with elías. Dressing was applied the patient was awakened extubated and the Wen removed. She was taken the recovery room good condition. Complications: none Post-operative Condition: stable Disposition: PACU
--- NOTE | 2021-05-08 17:15 | SUR.PHASEI ---
SBAR report at bedside to Gema NUNES.
[2021-05-08] MEDS: ACETAMINOPHEN 325 MG TABLET 650 MG PO (17:24)
[2021-05-08] MEDS: OXYCODONE IR 5 MG TABLET PO (17:25)
[2021-05-08] MEDS: LACTATED RINGERS 1,000 ML 125 ML IV (20:19)
[2021-05-08] MEDS: GABAPENTIN 300 MG CAPSULE PO (21:54)
--- NOTE | 2021-05-08 23:03 | PC.ADMIT ---
[facility] Admission Note: The patient,Marly Bonilla,55 y/o, was given written information regarding hospital policies, unit procedures and contact persons. Patient's smoking status: Current every day smoker. Pt arrived from PACU. A/O. Drsg c/d/i. Oriented to room and call light. Pt verablized she will call for needs. Vital Signs - 8 hr 05/08/21 16:25 05/08/21 16:30 05/08/21 16:35 Temperature 98.6 F Pulse Rate 89 84 87 Respiratory Rate 12 13 14 Blood Pressure 139/68 124/57 L 109/56 L Pulse Oximetry 96 97 96 05/08/21 16:40 05/08/21 16:45 05/08/21 16:50 Temperature 97.8 F Pulse Rate 84 84 89 Respiratory Rate 14 14 11 L Blood Pressure 122/58 L 124/58 L 122/57 L Pulse Oximetry 94 93 95 05/08/21 16:55 05/08/21 17:00 05/08/21 17:05 Temperature Pulse Rate 88 90 88 Respiratory Rate 13 14 12 Blood Pressure 124/59 L 120/55 L 126/64 Pulse Oximetry 94 94 95 05/08/21 17:10 05/08/21 17:19 05/08/21 17:48 Temperature 97.7 F Pulse Rate 89 88 87 Respiratory Rate 11 L 16 16 Blood Pressure 112/64 122/55 L 133/50 L Pulse Oximetry 94 97 94 05/08/21 18:00 05/08/21 18:30 05/08/21 19:30 Temperature 97.5 F L 97.5 F L Pulse Rate 88 90 90 Respiratory Rate 15 16 16 Blood Pressure 124/58 L 116/59 L 112/53 L Pulse Oximetry 95 95 95 05/08/21 20:30 05/08/21 22:00 Temperature Pulse Rate 82 Respiratory Rate 16 Blood Pressure 100/45 L 110/60 Pulse Oximetry 95
[2021-05-09] MEDS: ACETAMINOPHEN 325 MG TABLET 650 MG PO (00:35)
[2021-05-09 01:04] VITALS: BP 120/62; PULSE 88; RESP 18; TEMP 36.7; O2SAT 93
[2021-05-09] MEDS: LACTATED RINGERS 1,000 ML 125 ML IV (04:14)
[2021-05-09] MEDS: KETOROLAC 30 MG/ML VIAL IV (04:40)
[2021-05-09 07:46] VITALS: BP 136/68; PULSE 66; RESP 17; TEMP 37.1; O2SAT 94
[2021-05-09] MEDS: OXYCODONE IR 5 MG TABLET 10 MG PO (08:01)
[2021-05-09] MEDS: GABAPENTIN 300 MG CAPSULE PO (08:02)
[2021-05-09] MEDS: lisinopriL 20 MG TABLET PO (08:11)
[2021-05-09] MEDS: SERTRALINE 50 MG TABLET PO (08:11)
[2021-05-09] MEDS: ENOXAPARIN 40 MG/0.4 ML SYRINGE SUBCUT (08:12)
--- NOTE | 2021-05-09 08:28 | PC.NURSE ---
Addendum entered by Tiffanie Strauss R.N. 05/09/21 09:26: dressing changed after washing the surrounding area- showed both pt and her daughter how to change if the need arises- prepared for discharge Original Note: PT ANXIOUS THIS AM RE: NATURE OF PROCEDURE AND REASONING FOR MALCOLM DRAIN- MUCH ASSURANCE GIVEN THIS AM AND ADDRESSED EACH OF HER CONCERNS- PT RATES PAIN (INCISIONAL) 04/13, MEDICATED WITH PO OXYCODONE AND SCHEDULED GABAPENTIN WELL HER ROUTINE AM RX- SHE IS ABLE TO BE UP AD BRAYAN IN ROOM AND USING TOILET- TOLERATING GENERAL DIET WELL
--- NOTE | 2021-05-09 11:33 | CM.IDA ---
Initial DCP Assessment Note Pt is a 56 yo female, resident of [place], now POD#1 from Repair of hernia with underlay of mesh by Dr Frank PCP: Leilani Grijalva Payer: Pool Reviewed chart, pt discussed in multidisciplinary rounds this morning. Patient has been medically cleared and DC order in place. Patient plans to DC home w/spouse and dtr to assist. No needs expected from DC planning team although will remain available in case this changes today. DARIUS Perez
--- NOTE | 2021-05-09 12:31 | P.DS_ITS ---
History of Present Illness History of Present Illness Date Patient Seen: 05/09/21 Time Patient Seen: 10:00 Chief complaint: OPB Narrative: Patient is a woman who was brought in for repair of an incisional ventral hernia. Because of the extensive operation she was kept overnight in observation. She had a drain placed at the time of the operation. Discharge Providers Provider Discharge Date: 05/09/21 Primary care physician: LEE ANN Vogt Consults: 05/08/21 18:00 Consult to Discharge Planning Routine Comment: Discharge provider: Juan Frank MD Summary Hospital Course Discharge Diagnosis: Incisional ventral hernia chronic Chronic hypertension Chronic asthma Chronic depression Hospital Course: Patient had a hernia repair with an underlay of mesh. She had a drain placed switch was removed the morning of her discharge. She is discharged tolerating a diet on oral pain medication to follow up in the office. She is to call for that appointment. Status at Discharge Cognitive/behavioral status at discharge: oriented Functional status at discharge: independent ambulation Overall status at discharge: patient is progressing back to baseline Exam Vital Signs (past 8 hours): - 05/09/21 07:46 Temperature 98.8 F Pulse Rate 66 Respiratory Rate 17 Blood Pressure 136/68 Pulse Oximetry 94 Oxygen Delivery Method Room Air Oxygen Flow Rate 0 PFSH Medical History Acute sinusitis Depression (~2016) Elevated blood sugar Elevated platelet count Fatty liver Fractures (~2002) GERD (gastroesophageal reflux disease) Hand joint stiff (2016) Hand pain (2016) Heavy menses (2017) Hernia Hypertension (2006) Iron deficiency anemia (10/2019) Irregular menstrual cycle (~2017) Mixed hyperlipidemia Painful menstrual periods (~2017) Pet allergy (09/2019) Positive JOSE ALBERTO (antinuclear antibody) Prediabetes (08/2020) Tobacco abuse Vision disorder Surgical History (Updated 03/22/21 @ 16:51 by Juan Frank MD) Anesthesia History of section History of tubal ligation (~02/28/05) S/P laparoscopic supracervical hysterectomy (~10/2020) Family History Mother Cancer History of heart disease Stroke Hypertension Social History marital status: household members: spouse and children Smoking Status: Current every day smoker second hand exposure: No alcohol intake: never substance use type: does not use Discharge Plan Discharge Plan Patient Disposition: Home Provider Discharge Comment: Your operation went well. I repaired your hernia and placed mesh under the repair. The pain medicine I prescribed may constipate you. If it does take medication like Metamucil. Your incision area may become hard. This is not unusual. In fact expected. It does not mean her hernia has come back. It is just a reaction to having a major operation in that area. If you have any problems or questions call our office. In addition to the prescription pain medication you may also take Tylenol (ac etaminophen) up to 1000 mg 3 times a day or Motrin (ibuprofen) 600 mg 4 times a day. Discharge orders & Medications Discharge Orders: Discharge (Order); Ordered 05/09/21 Ordered By: Juan Frank Prescriptions: New oxycodone 5 mg tablet See Rx Instructions .ROUTE .COMPLEX PRN (Reason: painful procedure) Qty: 20 RF: 0 Continued multivitamin Tablet 1 tab PO DAILY RF: 0 lisinopril 20 mg tablet 20 mg PO DAILY Qty: 90 RF: 0 albuterol sulfate [Ventolin HFA] 90 mcg/actuation HFA aerosol inhaler 2 puff INHALATION Q3-4H PRN (Reason: shortness of breath or wheezing) Qty: 8.5 RF: 5 biotin 1 mg capsule 1 mg PO DAILY RF: 0 sertraline 50 mg tablet 50 mg PO DAILY Qty: 90 RF: 2 ibuprofen 600 mg tablet 600 mg PO Q6H PRN (Reason: hysterectomy) Qty: 20 RF: 0 Follow up/Referrals: Leilani Grijalva ARNP [Primary Care Provider] - Juan Frank MD [Physician] - 05/23/21 9:15 am (*appt:05/23 @ 9:[address] frank If you need to reach a doctor please call our office. If it is after hours listen to the message and you will be instructed how to call the doctor on-call for our practice. Have a pen and paper ready to write the 1 [phone] number down.) Diet/Activity/Treatments Diet: Diet as Tolerated Activity: Do not operate machinery or drive today. Do not sign important documents today. Do not lift over 10 lb or strain for the next 6 weeks. You may walk. No pool or tub for at least 2 weeks. Skin/Wound/Dressing Care Report to your healthcare provider any signs of infection, such as:: chills, fever, increased pain, unusual drainage and unusual redness Dressing: You may remove the dressing that was placed today on Thursday and shower. If you so desire keep a dressing on it though it isn't absolutely necessary unless the wound is draining. Discharge Data Primary Care Provider: Leilani Grijalva Attending Provider: Juan Frank
== END 2021-05-09 10:16 | disposition home or self-care (01) ==
LOC: OR 12:18 → AC 12:18
PROVIDERS: PCP Nurse Practitioner Family; Referring Provider Specialist; Visit Provider Specialist
PROC: (CPT 49560; principal; 2021-05-08 13:45)
DX: K43.2 Incisional hernia without obstruction or gangrene (principal); I10 Essential (primary) hypertension; F17.210 Nicotine dependence, cigarettes, uncomplicated; E78.5 Hyperlipidemia, unspecified
CPT/HCPCS: 49560; 49568; 82962; C1781; J0360; J0690; J1100; J1170; J1650; J1885; J2250; J2405; J2704; J3010

== ENCOUNTER → 2021-07-23 16:27 | Outpatient (CLI) | payer OTHER, SELFPAY ==
--- NOTE | 2021-07-23 16:31 | DI.RAD.S_ITS ---
PROCEDURE: XR HAND RT 2V INDICATIONS: right hand pain TECHNIQUE: 2 views of the hand(s) acquired. COMPARISON: None. FINDINGS: Bones: No fractures or dislocations. Carpal bones are normally aligned. No suspicious bony lesions. Soft tissues: No suspicious soft tissue calcifications. IMPRESSION: No acute osseous abnormality. Dictated by: Ramesh Gaming M.D. on 07/23/2021 at 16:45 Approved by: Ramesh Gaming M.D. on 07/23/2021 at 16:46
== END ==
PROVIDERS: PCP Nurse Practitioner Family; Referring Provider Nurse Practitioner Family; Visit Provider Nurse Practitioner Family
DX: M79.641 Pain in right hand (principal)
CPT/HCPCS: 73120

== ENCOUNTER → 2021-08-01 18:49 | Outpatient (CLI) | payer OTHER, SELFPAY | PROVIDERS: PCP Nurse Practitioner Family; Referring Provider Internal Medicine; Visit Provider Internal Medicine | DX: Z23 Encounter for immunization (principal) | CPT/HCPCS: 90471; 90686 ==

== ENCOUNTER → 2021-09-18 10:25 | Outpatient (CLI) | payer OTHER, SELFPAY ==
[2021-09-18 11:14] LABS: Erythrocyte Sedimentation Rate 14 MM/HR (0-20)
[2021-09-18 11:22] LABS: C-Reactive Protein Quant < 0.5 mg/dL (<1.0)
== END ==
PROVIDERS: PCP Nurse Practitioner Family; Referring Provider Nurse Practitioner Family; Visit Provider Nurse Practitioner Family
DX: M79.641 Pain in right hand (principal)
CPT/HCPCS: 36415; 85651; 86140

== ENCOUNTER → 2022-09-01 11:00 | Outpatient (CLI) | payer OTHER, SELFPAY | PROVIDERS: PCP Nurse Practitioner Family; Referring Provider Internal Medicine; Visit Provider Internal Medicine | DX: Z23 Encounter for immunization (principal) | CPT/HCPCS: 90471; 90686 ==

== ENCOUNTER 2022-10-29 10:12 | Observation (INO) | payer OTHER, SELFPAY ==
[2022-10-29] VITALS (20 sets, daily range): BP systolic 106–140; BP diastolic 42–69; PULSE 61–81; RESP 12–19; TEMP 36.5–37; O2SAT 94–98; BMI 28.3
--- NOTE | 2022-10-29 10:21 | DI.RAD.S_ITS ---
PROCEDURE: XR CHEST 1V INDICATIONS: chest pain TECHNIQUE: One view of the chest was acquired. COMPARISON: [facility], CR, XR CHEST 1V, 09/19/2019, 20:21. FINDINGS: Surgical changes and devices: None. Lungs and pleura: Lungs are clear. No pleural effusions or pneumothorax. Low lung volumes. Mediastinum: Mediastinal contours appear normal. Heart size is normal. Bones and chest wall: No suspicious bony lesions. Overlying soft tissues appear unremarkable. IMPRESSION: No acute radiographic abnormality. Low lung volumes. Dictated by: Magno Guy M.D. on 10/29/2022 at 12:47 Approved by: Magno Guy M.D. on 10/29/2022 at 12:48
--- NOTE | 2022-10-29 10:22 | ED.SYNCOPE ---
HPI - Syncope General Chief Complaint: Syncope Stated Complaint: Syncope, Fall Time Seen by Provider: 10/29/22 10:20 History of Present Illness HPI narrative: Patient brought in by operating room staff for unwitnessed syncope. 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 Patient was found on the floor. Complains of headache and left knee pain. Patient is able to give her name and date of . Denies any history of seizures heart attack or strokes. She feels very tired she states. Does not recall what happened to her. However she denies any chest pain today prior to arrival. Blood sugar 124. Related Data Home Medications Medication Instructions Recorded Confirmed multivitamin 1 tab PO DAILY 08/17/19 11/10/22 biotin 1,000 mg PO DAILY 07/23/21 11/10/22 Previous Rx's Medication Instructions Recorded albuterol sulfate 90 mcg/actuation 2 puff inhalation Q3-4H PRN 03/12/21 aerosol inhaler (Ventolin HFA) shortness of breath or wheezing #8.5 grams lisinopril 20 mg tablet 20 mg PO DAILY #90 tabs 01/14/22 sertraline 150 mg capsule 150 mg PO DAILY #90 caps 01/14/22 piroxicam 20 mg capsule 20 mg PO DAILY #90 caps 07/02/22 cyclobenzaprine 10 mg tablet 10 mg PO Q8HR PRN Spasms #30 tabs 10/30/22 amitriptyline 10 mg tablet 10 - 20 mg PO BEDTIME #60 tabs 11/10/22 hydrocodone 5 mg-acetaminophen 325 1 tab PO Q8H PRN pain #20 tabs 11/10/22 mg tablet Allergies Allergy/AdvReac Type Severity Reaction Status Date / Time Barbiturates Allergy Severe anaphylaxis Verified 11/10/22 07:57 meperidine [From Demerol] Allergy Verified 11/10/22 07:57 simvastatin AdvReac Intermediate Myalgia Verified 11/10/22 07:57 Review of Systems Review of Systems Narrative: GENERAL: negative chills, fatigue, malaise, fever, sweats. HEENT: negative sinus pain, ear pain, sore throat RESPIRATORY: negative dyspnea, cough CARDIOVASCULAR: negative chest pain, palpitations, positive syncope GASTROINTESTINAL: negative nausea, vomiting, abdominal pain : negative dysuria, frequency, hematuria MUSCULOSKELETAL: Positive muscle or bony pain SKIN: negative rash, skin lesions NEUROLOGIC: negative weakness, numbness, positive headache ROS Unobtainable: All systems reviewed & are unremarkable except as noted in HPI and below Patient History Medical History (Updated 11/10/22 @ 08:33 by Tiera Crawford DO) Acute sinusitis Depression (~2016) Dupuytren's contracture of left hand Elevated blood sugar Elevated platelet count Fatty liver Fractures (~2002) GERD (gastroesophageal reflux disease) Hand joint stiff (2017) Hand pain (2017) Heavy menses (2018) Hernia Iron deficiency anemia (10/2019) Irregular menstrual cycle (~2017) Mixed hyperlipidemia Painful menstrual periods (~2017) Pet allergy (09/2019) Positive JOSE ALBERTO (antinuclear antibody) Prediabetes (08/2020) Tobacco abuse Vision disorder Surgical History Anesthesia History of section History of tubal ligation (~02/28/05) S/P laparoscopic supracervical hysterectomy (~10/2020) Family History Mother Cancer History of heart disease Stroke Hypertension Social History marital status: household members: spouse and children Smoking Status: Current every day smoker second hand exposure: No alcohol intake: never substance use type: does not use Smoking Status: Current every day smoker tobacco type: cigarettes alcohol intake frequency: holidays/special occasions only Substance Use Type: does not use Exam Narrative Exam Narrative: GENERAL: in no distress, not toxic not dyspneic HEAD: Normocephalic. Mild tenderness os but scalp. No crepitus or step-off. No skin injury otherwise. EYES: Pupils equal round ENT: Mucous membranes moist. NECK: Trachea midline. No midline tenderness or step-off of the cervical thoracic or lumbar spine. CARDIOVASCULAR: Regular rate and rhythm without murmurs RESPIRATORY: Clear to auscultation. Breath sounds equal bilaterally. No wheezes, rales, or rhonchi. GASTROINTESTINAL: Abdomen soft, non-tender EXTREMITIES: No gross deformities. Able to actively fully flex and extend at the left knee. Mild tenderness to the patella. No gross deformity. BACK: No flank tenderness. NEURO: AOx3. Clear speech no facial droop light touch intact bilateral face and hands with strong equal director automotive. Negative fast exam SKIN: Warm and dry PSYCH: Not anxious, is cooperative Initial Vital Signs Initial Vital Signs: Vital Signs Pulse Rate 80 10/29/22 10:15 Respiratory Rate 12 10/29/22 10:15 Blood Pressure 140/61 10/29/22 10:15 Pulse Oximetry 95 10/29/22 10:15 Oxygen Delivery Method 10/29/22 10:15 Course Orders Ordered: Discontinued Medications Acetaminophen (Acetaminophen 325 Mg Tablet) 650 mg PO Q6H [facility] Last Admin: 10/30/22 02:41 Dose: 650 mg Documented By: Admin: 10/29/22 21:10 Dose: 650 mg Documented By: Admin: 10/29/22 15:01 Dose: 650 mg Documented By: HARRY Cyclobenzaprine HCl (Cyclobenzaprine 10 Mg Tablet) 10 mg PO Q8HR PRN PRN Reason: Spasms Last Admin: 10/30/22 07:53 Dose: 10 mg Documented By: Admin: 10/29/22 17:06 Dose: 10 mg Documented By: RANDEE Hydromorphone HCl (Hydromorphone 0.5 Mg Inj) 0.5 mg IV Q2H PRN PRN Reason: Pain, Moderate (4-6) Sodium Chloride (Normal Saline 0.9%) 500 mls @ 1,000 mls/hr IV BOLUS ONE Stop: 10/29/22 11:00 Last Infusion: 10/29/22 13:17 Dose: 0 mls/hr Documented By: Admin: 10/29/22 11:01 Dose: 1,000 mls/hr Documented By: MIKE Sodium Chloride (Normal Saline 0.9%) 1,000 mls @ 100 mls/hr IV CONT [facility] Last Admin: 10/30/22 01:05 Dose: 100 mls/hr Documented By: Infusion: 10/30/22 01:00 Dose: 100 mls/hr Documented By: Admin: 10/29/22 15:00 Dose: 100 mls/hr Documented By: HARRY Ibuprofen (Ibuprofen 600 Mg Tablet) 600 mg PO Q6H [facility] Last Admin: 10/29/22 15:00 Dose: 600 mg Documented By: HARRY Ketorolac Tromethamine (Ketorolac 30 Mg/Ml Vial) 30 mg IV NOW ONE Stop: 10/29/22 16:34 Last Admin: 10/29/22 17:06 Dose: 30 mg Documented By: RANDEE Ketorolac Tromethamine (Ketorolac 30 Mg/Ml Vial) 30 mg IV Q6H ALE Stop: 11/03/22 16:34 Last Admin: 10/30/22 04:50 Dose: 30 mg Documented By: Admin: 10/29/22 23:12 Dose: 30 mg Documented By: Admin: 10/29/22 17:13 Dose: Not Given Documented By: RANDEE Morphine Sulfate (Morphine 4 Mg/Ml Inj) 1 mg IV NOW ONE Stop: 10/29/22 10:30 Last Admin: 10/29/22 11:00 Dose: 1 mg Documented By: MIKE Morphine Sulfate (Morphine 2 Mg/Ml Inj) 1 mg IV NOW ONE Stop: 10/29/22 11:31 Last Admin: 10/29/22 11:36 Dose: 1 mg Documented By: MIKE Morphine Sulfate (Morphine 2 Mg/Ml Inj) 1 mg IV NOW ONE Stop: 10/29/22 12:51 Last Admin: 10/29/22 12:55 Dose: 1 mg Documented By: MIKE Naloxone HCl (Naloxone 0.4 Mg/Ml Vial) 0.2 mg IV Q2MIN PRN PRN Reason: Opiate Reversal Ondansetron HCl (Ondansetron 4 Mg/2 Ml Inj) 4 mg IV NOW ONE Stop: 10/29/22 10:30 Last Admin: 10/29/22 11:01 Dose: 4 mg Documented By: MIKE Ondansetron HCl (Ondansetron 4 Mg/2 Ml Inj) 4 mg IV Q8HR PRN PRN Reason: Nausea And Vomiting Last Admin: 10/29/22 18:47 Dose: 4 mg Documented By: CAIO Oxycodone HCl (Oxycodone Ir 5 Mg Tablet) 5 mg PO Q3H PRN PRN Reason: Pain, Moderate (4-6) Last Admin: 10/30/22 07:53 Dose: 5 mg Documented By: CAIO Vital Signs Vital signs: Vital Signs - 8 hr 10/29/22 10:15 10/29/22 10:22 10/29/22 10:30 Pulse Rate 80 81 80 Respiratory Rate 12 13 13 Blood Pressure 140/61 Pulse Oximetry 95 95 94 Oxygen Delivery Method Room Air 10/29/22 10:31 10/29/22 10:31 10/29/22 10:40 Pulse Rate 81 73 Respiratory Rate 18 Blood Pressure 119/57 L 119/57 L Pulse Oximetry 94 98 Oxygen Delivery Method Room Air 10/29/22 10:55 10/29/22 10:55 10/29/22 11:00 Pulse Rate 74 79 Respiratory Rate 12 13 Blood Pressure 113/56 L Pulse Oximetry 98 95 Oxygen Delivery Method 10/29/22 11:30 10/29/22 11:44 10/29/22 11:44 Pulse Rate 81 73 Respiratory Rate 15 14 Blood Pressure 106/53 L Pulse Oximetry 97 97 Oxygen Delivery Method 10/29/22 12:00 10/29/22 12:00 10/29/22 12:30 Pulse Rate 76 Respiratory Rate 14 Blood Pressure 113/55 L 109/52 L Pulse Oximetry 94 Oxygen Delivery Method 10/29/22 12:30 Pulse Rate 81 Respiratory Rate 14 Blood Pressure Pulse Oximetry 95 Oxygen Delivery Method MDM - Syncope Lab Data 10/29/22 10:23 10/29/22 10:23 Labs: Lab Results 10/29/22 10/29/22 10/29/22 Range/Units 10:23 10:23 10:23 WBC 11.0 (4.5-11.0) X10^3/uL RBC 4.42 (4.0-5.2) X10^6/uL Hgb 12.8 (12.0-16.0) g/dL Hct 37.5 (36-46) % MCV 85.0 (80-100) fL MCH 28.9 (26-34) PG MCHC 34.0 (30-36) % RDW 14.1 (11.6-14.8) % Plt Count 455 H (150-400) X10^3/uL Neut % (Auto) 69.2 (50-75) % Lymph % (Auto) 23.3 L (25-40) % [place] % (Auto) 5.3 (3-14) % Eos % (Auto) 1.2 L (2-4) % Baso % (Auto) 1.0 (0-2) % Neut # (Auto) 7600 H (5024-1807) /uL Lymph # (Auto) 2600 (9875-3679) /uL [place] # (Auto) 600 (0-900) /uL Eos # (Auto) 100 (0-450) /uL Baso # (Auto) 100 (0-100) /uL PT 12.0 (10.1-12.7) SECONDS INR 1.0 (0.9-1.3) APTT 37 H (26-36) SECONDS D-Dimer 706 H (<500) ng/ml Sodium 140 (137-145) mmol/L Potassium 4.6 (3.4-5.1) mmol/L Chloride 101 (98-107) mmol/L Carbon Dioxide 28 (22-32) mmol/L BUN 21 H (7-17) mg/dL Creatinine 0.88 (0.52-1.04) mg/dL Estimated GFR > 60 (>60) mL/min BUN/Creatinine Ratio 23.9 H (6-22) Glucose 120 H (70-100) mg/dL Calcium 9.7 (8.4-10.2) mg/dL Total Bilirubin 0.6 (0.2-1.3) mg/dL AST 23 (14-36) IU/L ALT 30 (<35) IU/L Alkaline Phosphatase 103 (38-126) U/L Total Creatine Kinase 117 (30-135) U/L CK-MB (CK-2) 0.77 (<2.37) ng/mL CK-MB (CK-2) Rel Index 0.7 L (1.5-5.0) % Troponin I < 0.012 (0.01-0.034) ng/mL Total Protein 7.7 (6.3-8.2) g/dL Albumin 4.4 (3.5-5.0) g/dL Globulin 3.3 (1.7-4.1) g/dL Albumin/Globulin Ratio 1.3 (1.0-2.8) SARS-CoV-2 (PCR) (Negative) 10/29/22 Range/Units 10:30 WBC (4.5-11.0) X10^3/uL RBC (4.0-5.2) X10^6/uL Hgb (12.0-16.0) g/dL Hct (36-46) % MCV (80-100) fL MCH (26-34) PG MCHC (30-36) % RDW (11.6-14.8) % Plt Count (150-400) X10^3/uL Neut % (Auto) (50-75) % Lymph % (Auto) (25-40) % [place] % (Auto) (3-14) % Eos % (Auto) (2-4) % Baso % (Auto) (0-2) % Neut # (Auto) (4244-4778) /uL Lymph # (Auto) (4071-6325) /uL [place] # (Auto) (0-900) /uL Eos # (Auto) (0-450) /uL Baso # (Auto) (0-100) /uL PT (10.1-12.7) SECONDS INR (0.9-1.3) APTT (26-36) SECONDS D-Dimer (<500) ng/ml Sodium (137-145) mmol/L Potassium (3.4-5.1) mmol/L Chloride (98-107) mmol/L Carbon Dioxide (22-32) mmol/L BUN (7-17) mg/dL Creatinine (0.52-1.04) mg/dL Estimated GFR (>60) mL/min BUN/Creatinine Ratio (6-22) Glucose (70-100) mg/dL Calcium (8.4-10.2) mg/dL Total Bilirubin (0.2-1.3) mg/dL AST (14-36) IU/L ALT (<35) IU/L Alkaline Phosphatase (38-126) U/L Total Creatine Kinase (30-135) U/L CK-MB (CK-2) (<2.37) ng/mL CK-MB (CK-2) Rel Index (1.5-5.0) % Troponin I (0.01-0.034) ng/mL Total Protein (6.3-8.2) g/dL Albumin (3.5-5.0) g/dL Globulin (1.7-4.1) g/dL Albumin/Globulin Ratio (1.0-2.8) SARS-CoV-2 (PCR) Negative (Negative) Point of Care Testing Glucose POC 124 Imaging Data CTA - brain/neck: Radiologist's Impression: [address] [id number] Scan ReportSigned Patient: Marly Bonilla [facility]#: [id number]: 1965Acct:[id number]/Sex: 57 / FDate of Service: 10/29/22Loc: EDAccession Number: [id number] Procedure: CT angio head and neck Ordering Provider: Haroon Acosta MD PROCEDURE: CT ANGIO HEAD AND NECK INDICATIONS: Syncope/altered mental status TECHNIQUE: Pre-contrast 4.5 mm thick sections acquired from the foramen magnum to the vertex. After the administration of intravenous contrast, 1 mm thick sections acquired from the aortic arch through the [place] of [place]. Post-contrast 4.5 mm thick sections then re-acquired from the foramen magnum to the vertex. 3-dimensional kmdvezz-whcwxpqze-hhskhxsjmk (MIP) and/or volume rendering reformats were acquired of the central intracranial vasculature and neck separately. For radiation dose reduction, the following was used: automated exposure control, adjustment of mA and/or kV according to patient size. COMPARISON: [facility], CT, CT HEAD/BRAIN WO CON, 03/15/2021, 12:12. FINDINGS: Image quality: Mild streak artifact can be seen through the skull base. BRAIN: CSF spaces: Ventricles are normal in size and shape. Basal cisterns are patent. No extra-axial fluid collections. Brain: No midline shift. No intracranial bleeds or masses. [place]-white matter interface appears intact. Skull and face: Calvarium and facial bones appear intact, without suspicious lesions. Orbits appear normal. Sinuses: Sinuses and mastoids are clear. HEAD CT ANGIOGRAPHY: Anterior circulation: Intracranial internal carotid arteries demonstrate atherosclerotic irregularity and calcification, with 20-30% narrowing seen on each side. The flow within the paired anterior cerebral arteries is normal and symmetric. The flow within the middle cerebral arteries is normal and symmetric. The anterior communicating artery is seen. No aneurysms are seen. Posterior circulation: Visualized portions of the vertebral arteries demonstrate normal caliber, and join to form a normal appearing basilar artery. There is a prominent left posterior communicating artery seen, with an accompanying diminutive left P1 segment. This is attributed to a type origin of the left posterior cerebral artery, which is considered to be a normal developmental variant of typically no clinical consequence. Flow within the posterior cerebral arteries is normal and symmetric. No aneurysms are seen. NECK CT ANGIOGRAPHY: Carotid system: The great vessels demonstrate a conventional anatomy as they arise from the aortic arch. The origins of the common carotid arteries appear patent. The common carotid arteries demonstrate normal caliber and courses. The bifurcation regions demonstrate atherosclerotic irregularity and calcification, with 40-50% narrowing seen involving the left proximal internal carotid artery and 50-60% narrowing seen on the right. The more distal internal carotid arteries demonstrate normal course and caliber. Posterior circulation: The origins of the vertebral arteries both appear widely patent. The more superior extracranial portions of both vertebral arteries also demonstrate normal courses and calibers. They join to form a normal appearing basilar artery. Soft tissues: Visualized neck soft tissues demonstrate no suspicious abnormalities. Bones: No suspicious bony lesions. Visualized cervical spine appears normally aligned. Focal peux-ny-xvskcynt lower cervical spine degenerative change can be seen. IMPRESSION: No acute intracranial hemorrhage is seen. No acute intracranial process is seen. No significant intracranial arterial abnormality is seen. Focal calcification and irregularity can be seen involving the carotid bifurcations, which are not regarded to be hemodynamically significant. No significant vertebral abnormality can be seen. No masses or abnormal enhancement can be seen. Additional findings: type origin of the left posterior cerebral artery. Lower cervical spine degenerative change Any quantitative measurements of stenosis were performed using NASCET criteria. Dictated by: Branden Miller M.D. on 10/29/2022 at 10:00 Approved by: Branden Miller M.D. on 10/29/2022 at 10:05 Extremity x-ray #1: Radiologist's Impression: [place] [address] XRay Report Signed Patient: Marly Bonilla MR#: [id number] : 1965 Acct:[id number] Age/Sex: 57 / F Date of Service: 10/29/22 Loc: ED Accession Number: [id number] ?? Procedure: XR knee LT 3V Ordering Provider: Haroon Acosta MD PROCEDURE:? XR KNEE LT 3V ? INDICATIONS:? pain ? TECHNIQUE:? 3 views of the knee were acquired.? ? COMPARISON:? None. ? FINDINGS:? ? Bones:? No displaced fracture.? No dislocation.? Patellar enthesopathy. ? Soft tissues:? No significant effusion. ? ? IMPRESSION:? No acute radiographic abnormality.? If there is high concern for further derangement, consider MRI evaluation. ? ? Dictated by: Magno Guy M.D. on 10/29/2022 at 12:46 ? ? Approved by: Magno Guy M.D. on 10/29/2022 at 12:47 ? Chest x-ray: Radiologist's Impression: [address] [address] XRay Report Signed Patient: Marly Bonilla MR#: [id number] : 1965 Acct:[id number] Age/Sex: 57 / F Date of Service: 10/29/22 Loc: ED Accession Number: [id number] ?? Procedure: XR chest 1V Ordering Provider: Haroon Acosta MD PROCEDURE:? XR CHEST 1V ? INDICATIONS:? chest pain ? TECHNIQUE:? One view of the chest was acquired.? ? COMPARISON:? [facility], CR, XR CHEST 1V, 09/19/2019, 20:21. ? FINDINGS:? ? Surgical changes and devices:? None.? ? Lungs and pleura:? Lungs are clear.? No pleural effusions or pneumothorax.? Low lung volumes. ? Mediastinum:? Mediastinal contours appear normal.? Heart size is normal.? ? Bones and chest wall:? No suspicious bony lesions.? Overlying soft tissues appear unremarkable.? ? IMPRESSION:? No acute radiographic abnormality.? Low lung volumes. ? ? Dictated by: Magno Guy M.D. on 10/29/2022 at 12:47 ? ? Approved by: Magno Guy M.D. on 10/29/2022 at 12:48 ? ECG Data Interpretation: Normal sinus rhythm rate [address] elevation or depression MDM Narrative Medical decision making narrative: Patient brought in by operating room staff for unwitnessed syncope. 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 Patient was found on the floor. Complains of headache and left knee pain. Patient is able to give her name and date of . Denies any history of seizures heart attack or strokes. She feels very tired she states. Does not recall what happened to her. However she denies any chest pain today prior to arrival. Blood sugar 124. After evaluation and exam and history, CBC CMP troponin EKG CT angiogram head and neck ordered chest x-ray, 1 mg morphine and 4 mg Zofran and normal saline ordered. MDM CC: Syncope Complicating co-morbidities: None Data collected from: Patient and operating room staff Medical records reviewed: Previous visit in 2020 for vasovagal syncope. Differential considered: Includes but not limited to vasovagal syncope/PE/stroke/seizure/mechanical fall/concussion Exam documented above, pertinent findings include: Tender scalp tender left knee Lab Test results independently reviewed as above. Pertinent findings: CBC without leukocytosis, no anemia. CMP no acute renal injury. Blood sugar 120. Normal troponin Independently reviewed EKG as above Imaging studies independently reviewed: CT angiogram head neck no acute process, x-ray left knee no acute process, chest x-ray no acute process Consultations: 1:00 p.m.. Spoke with General surgery, Dr. Chisholm, he will admit patient. Treatments: Morphine Zofran normal saline Re-evaluations: 12:45 p.m.. Patient still has a headache. at bedside. However patient does recall what happened. She states she is trying to get some toilet paper and she is walking in the hallway she had the surgical booties on and it was slippery, she slipped and fell backwards and hit her head. She thinks she strained her left knee. Discussion: Appropriate for admission observation. Patient had significant head injury will need observation. Patient is still requiring IV pain medication for headache and pain control. I did review with patient and they do agree for observation. Diagnosis: Syncope/concussion/scalp contusion/knee contusion Discharge Plan Departure Patient Disposition: Admitted as Observation Clinical Impression: Contusion of occipital region of scalp, Strain of knee and leg, left Closed head injury with concussion Qualifiers: Encounter type: subsequent encounter Loss of consciousness presence/duration: with LOC of unspecified duration Qualified Code(s): S06.0X9D - Concussion with loss of consciousness of unspecified duration, subsequent encounter Admit Date/Time: 10/29/22 13:54 Admit Provider: Cristobal Chisholm
--- NOTE | 2022-10-29 10:29 | DI.RAD.S_ITS ---
PROCEDURE: XR KNEE LT 3V INDICATIONS: pain TECHNIQUE: 3 views of the knee were acquired. COMPARISON: None. FINDINGS: Bones: No displaced fracture. No dislocation. Patellar enthesopathy. Soft tissues: No significant effusion. IMPRESSION: No acute radiographic abnormality. If there is high concern for further derangement, consider MRI evaluation. Dictated by: Magno Guy M.D. on 10/29/2022 at 12:46 Approved by: Magno Guy M.D. on 10/29/2022 at 12:47
--- NOTE | 2022-10-29 10:30 | DI.CT.S_ITS ---
PROCEDURE: CT ANGIO HEAD AND NECK INDICATIONS: Syncope/altered mental status TECHNIQUE: Pre-contrast 4.5 mm thick sections acquired from the foramen magnum to the vertex. After the administration of intravenous contrast, 1 mm thick sections acquired from the aortic arch through the [place] of [place]. Post-contrast 4.5 mm thick sections then re-acquired from the foramen magnum to the vertex. 3-dimensional ljkasvu-wvpmvkryf-fawcigvroh (MIP) and/or volume rendering reformats were acquired of the central intracranial vasculature and neck separately. For radiation dose reduction, the following was used: automated exposure control, adjustment of mA and/or kV according to patient size. COMPARISON: [facility], CT, CT HEAD/BRAIN WO CON, 03/15/2021, 12:12. FINDINGS: Image quality: Mild streak artifact can be seen through the skull base. BRAIN: CSF spaces: Ventricles are normal in size and shape. Basal cisterns are patent. No extra-axial fluid collections. Brain: No midline shift. No intracranial bleeds or masses. [place]-white matter interface appears intact. Skull and face: Calvarium and facial bones appear intact, without suspicious lesions. Orbits appear normal. Sinuses: Sinuses and mastoids are clear. HEAD CT ANGIOGRAPHY: Anterior circulation: Intracranial internal carotid arteries demonstrate atherosclerotic irregularity and calcification, with 20-30% narrowing seen on each side. The flow within the paired anterior cerebral arteries is normal and symmetric. The flow within the middle cerebral arteries is normal and symmetric. The anterior communicating artery is seen. No aneurysms are seen. Posterior circulation: Visualized portions of the vertebral arteries demonstrate normal caliber, and join to form a normal appearing basilar artery. There is a prominent left posterior communicating artery seen, with an accompanying diminutive left P1 segment. This is attributed to a type origin of the left posterior cerebral artery, which is considered to be a normal developmental variant of typically no clinical consequence. Flow within the posterior cerebral arteries is normal and symmetric. No aneurysms are seen. NECK CT ANGIOGRAPHY: Carotid system: The great vessels demonstrate a conventional anatomy as they arise from the aortic arch. The origins of the common carotid arteries appear patent. The common carotid arteries demonstrate normal caliber and courses. The bifurcation regions demonstrate atherosclerotic irregularity and calcification, with 40-50% narrowing seen involving the left proximal internal carotid artery and 50-60% narrowing seen on the right. The more distal internal carotid arteries demonstrate normal course and caliber. Posterior circulation: The origins of the vertebral arteries both appear widely patent. The more superior extracranial portions of both vertebral arteries also demonstrate normal courses and calibers. They join to form a normal appearing basilar artery. Soft tissues: Visualized neck soft tissues demonstrate no suspicious abnormalities. Bones: No suspicious bony lesions. Visualized cervical spine appears normally aligned. Focal morm-dq-lkrjghko lower cervical spine degenerative change can be seen. IMPRESSION: No acute intracranial hemorrhage is seen. No acute intracranial process is seen. No significant intracranial arterial abnormality is seen. Focal calcification and irregularity can be seen involving the carotid bifurcations, which are not regarded to be hemodynamically significant. No significant vertebral abnormality can be seen. No masses or abnormal enhancement can be seen. Additional findings: type origin of the left posterior cerebral artery. Lower cervical spine degenerative change Any quantitative measurements of stenosis were performed using NASCET criteria. Dictated by: Branden Miller M.D. on 10/29/2022 at 10:00 Approved by: Branden Miller M.D. on 10/29/2022 at 10:05
[2022-10-29 10:32] LABS: Add Manual Diff / Slide Review NO; Basophils Absolute Auto 100 /uL (0-100); Eosinophils Absolute Auto 100 /uL (0-450); Eosinophils Percent Auto 1.2 % (2-4); Hematocrit 37.5 % (36-46); Hemoglobin 12.8 g/dL (12.0-16.0); Lymphocytes Absolute Auto 2600 /uL (1100-4500); Lymphocytes Percent Auto 23.3 % (25-40); Mean Corpuscular Hemoglobin 28.9 PG (26-34); Monocytes Absolute Auto 600 /uL (0-900); Monocytes Percent Auto 5.3 % (3-14); Neutrophils Absolute Auto 7600 /uL (1500-7000); Neutrophils Percent Auto 69.2 % (50-75); Platelet Count 455 X10^3/uL (150-400); Red Blood Cell Count 4.42 X10^6/uL (4.0-5.2); Red Cell Distribution Width 14.1 % (11.6-14.8)
[2022-10-29 10:41] LABS: D Dimer 706 ng/ml (<500)
[2022-10-29 10:42] LABS: PTT Partial Thromboplastin Tim 37 SECONDS (26-36)
[2022-10-29 10:44] LABS: Alanine Aminotransferase 30 IU/L (<35); Albumin 4.4 g/dL (3.5-5.0); Albumin Globulin Ratio 1.3 (1.0-2.8); Alkaline Phosphatase 103 U/L (38-126); Aspartate Aminotransferase 23 IU/L (14-36); BUN Creatinine Ratio 23.9 (6-22); Bilirubin Total 0.6 mg/dL (0.2-1.3); Blood Urea Nitrogen 21 mg/dL (7-17); Calcium 9.7 mg/dL (8.4-10.2); Carbon Dioxide 28 mmol/L (22-32); Chloride 101 mmol/L (98-107); Creatine Kinase 117 U/L (30-135); Estimated Glomerular Filt Rate > 60 mL/min (>60); Globulin 3.3 g/dL (1.7-4.1); Glucose 120 mg/dL (70-100); HEMOLYSIS < 15 (0-50); Potassium 4.6 mmol/L (3.4-5.1); Sodium 140 mmol/L (137-145); Total Protein 7.7 g/dL (6.3-8.2)
[2022-10-29 10:54] LABS: Troponin I < 0.012 ng/mL (0.01-0.034)
[2022-10-29 10:58] LABS: COVID19 -Nasal RAPID Negative (Negative)
[2022-10-29 10:59] LABS: CKMB % Relative Index 0.7 % (1.5-5.0); Creatine Kinase MB 0.77 ng/mL (<2.37)
[2022-10-29] MEDS: MORPHINE 4 MG/ML INJ 1 MG IV (11:00)
[2022-10-29] MEDS: SODIUM CHLORIDE 0.9% 500 ML 1000 ML IV (11:01)
[2022-10-29] MEDS: ONDANSETRON 4 MG/2 ML INJ IV ×2 (11:01→18:47)
[2022-10-29] MEDS: MORPHINE 2 MG/ML INJ 1 MG IV ×2 (11:36→12:55)
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
--- NOTE | 2022-10-29 13:47 | DI.RAD.S_ITS ---
PROCEDURE: XR HAND LT MIN 3V INDICATIONS: fall, pain, swelling TECHNIQUE: 3 views of the hand(s) acquired. COMPARISON: [facility], CR, XR HAND RT 2V, 07/23/2021, 16:24. FINDINGS: Bones: No fractures or dislocations. Carpal bones are normally aligned. Mild left hand and wrist joint osteoarthritic changes are seen most notably at 1st CMC joint. No suspicious bony lesions. Soft tissues: No suspicious soft tissue calcifications. IMPRESSION: No gross acute left hand fracture or dislocation. Left hand and wrist joint osteoarthritis as above. Dictated by: Ascencion Denny M.D. on 10/29/2022 at 14:19 Approved by: Ascencion Denny M.D. on 10/29/2022 at 14:20
[2022-10-29] MEDS: SODIUM CHLORIDE 0.9% 1,000 ML 100 ML IV (15:00)
[2022-10-29] MEDS: IBUPROFEN 600 MG TABLET PO (15:00)
[2022-10-29] MEDS: ACETAMINOPHEN 325 MG TABLET 650 MG PO ×2 (15:01→21:10)
[2022-10-29] MEDS: KETOROLAC 30 MG/ML VIAL IV ×2 (17:06→23:12)
[2022-10-29] MEDS: CYCLOBENZAPRINE 10 MG TABLET PO (17:06)
--- NOTE | 2022-10-29 23:28 | PC.NURSE ---
Patient is drowsy but arouses easily and is oriented except did not know the day of month. States she has some blurred vision left > right. Denied dizziness but upon sitting up in bed reported she did feel dizzy with the movement. Initially denied pain but later during assessment she did complain of headache with severity of 3/10 but states it is tolerable; medicated with scheduled Tylenol + Toradol. Breath sounds CTA with RA sat of 96%. HRR. Denied nausea. BT present and abdomen is soft. Denied dysuria with urination. Is able to move herself in bed but for safety is provided SBA when out of bed. Declined use of SCD's so reminded to ankle wave. Fall risk score is moderate and bed alarm is activated. Daughter rooming in.
[2022-10-30] MEDS: SODIUM CHLORIDE 0.9% 1,000 ML 100 ML IV (01:05)
[2022-10-30] MEDS: ACETAMINOPHEN 325 MG TABLET 650 MG PO (02:41)
[2022-10-30 03:00] VITALS: BP 125/57; PULSE 62; RESP 18; TEMP 36.2; O2SAT 97
[2022-10-30] MEDS: KETOROLAC 30 MG/ML VIAL IV (04:50)
[2022-10-30 07:00] VITALS: O2SAT 95
[2022-10-30] MEDS: OXYCODONE IR 5 MG TABLET PO (07:53)
[2022-10-30] MEDS: CYCLOBENZAPRINE 10 MG TABLET PO (07:53)
[2022-10-30 08:00] VITALS: BP 149/54; PULSE 67; RESP 17; TEMP 36.3; O2SAT 95
--- NOTE | 2022-10-30 10:11 | PC.NURSE ---
Addendum entered by Shannon Ramirez R.N. 10/30/22 10:23: Pt D/C @ 1023 Original Note: Pt dressed and ready for D/C home. Family is at bedside. IV removed and went over D/C instructions with pt and family. Discussed d/c meds, time of last dose, reviewed stroke education, no driving while on muscle relaxers and narcotics, notified of f/u appt, pt denied further questions and pt left with famiy via wheelchair.
--- NOTE | 2022-10-30 16:33 | CM.DANOTE ---
Addendum entered by Tammy Hope R.N. 10/30/22 16:41: Tammy Hope RN Case Manager Original Note: DCP: Assessment: Patient is 57yo female employee of [employer]. who sustained a ground level fall on 10/29/2022 in the operating room and had c/o severe posterior headache, confusion generalized weakness. She was place on the [place] and was transported to the ED and was diagnosed with closed head injury with concussion, acute. This CM met with pt in her room this am with her and daughter Iraida from out of state present. Introduced self and role. Pt A +Ox4. She confirms that she lives with her in [place]. She confirms that she does drive and that she does not use DME. PCP: Leilani Grijalva Insurance: [employer] and [employer] Plan: Home with . Discharge Planning/Care Management Advanced directive, confirm from FAMILY Start: 10/29/22 14:27 Freq: Q24H Status: Discharge Protocol: Document 10/29/22 14:27 [facility] (Rec: 10/29/22 14:44 [facility] [id number]) Advance Directive, confirm on record Time 14:15 Person contacted patient Copy received No CM Discharge Assessment Start: 10/30/22 13:01 Freq: Status: Active Protocol: Document 10/30/22 16:29 (Rec: 10/30/22 16:31 [id number]) Discharge Planning Assessment Assigned Book Solicitor Tammy Hope RN Case Manager Advance Directives? No Advance Directives on File No History Provided By Patient Has Patient been admitted in last 30 No days? Prior Living Arrangements House Household Members spouse,children Type of transporation used prior to Drives own vehicle admit Independent with ADL's Yes Is patient alert and oriented? Yes Caregiver for Another No Barriers to Discharge No Discharge Plan Home Transportation Arrangement will transport patient Referrals Initiated None needed Whiteboard Updated in Patient Room with Yes name and ext. # of Book Solicitor Review Status In Process Next Review Type Continued Stay Review
== END 2022-10-30 10:23 | disposition home or self-care (01) ==
LOC: ED 13:30 → AC 13:55
PROVIDERS: Admitting Provider Surgery; Emergency Provider Emergency Medicine; PCP Nurse Practitioner Family; Referring Provider Emergency Medicine; Visit Provider Surgery
DX: S06.0XAA Concussion with loss of consciousness status unknown, initial encounter (principal); R55 Syncope and collapse; S89.92XA Unspecified injury of left lower leg, initial encounter; W18.39XA Other fall on same level, initial encounter; Y93.89 Activity, other specified; Y92.238 Other place in hospital as the place of occurrence of the external cause; Y99.0 Civilian activity done for income or pay; Z20.822 Contact with and (suspected) exposure to COVID-19; I10 Essential (primary) hypertension
CPT/HCPCS: 36415; 70496; 70498; 71045; 73130; 73562; 80053; 82550; 82553; 82962; 84484; 85025; 85379; 85610; 85730; 87635; 93005; 96361; 96374; 96375; 96376; 99221; 99285; C9803; G0378; J1885; J2270; J2405; Q9967

== ENCOUNTER → 2023-04-16 15:54 | Outpatient (CLI) | payer OTHER, SELFPAY ==
[2022-10-29 14:01] VITALS: BMI 28.3
--- NOTE | 2023-04-16 15:55 | DI.MG.S_ITS ---
BILATERAL DIGITAL SCREENING MAMMOGRAM 3D/2D WITH CAD: 04/16/2023 CLINICAL: Routine screening. Baseline exam. No prior exams were available for comparison. There are scattered areas of fibroglandular density in both breasts (category b / 25%-50% glandular tissue). Current study was also evaluated with a Computer Aided Detection (CAD) system. There is a cluster of focal asymmetries in the left breast central to the nipple anterior depth. No other significant masses, calcifications, or other findings are seen in either breast. IMPRESSION: INCOMPLETE: NEEDS ADDITIONAL IMAGING EVALUATION The cluster of focal asymmetries in the left breast is indeterminate. Additional views with possible ultrasound are recommended. Based on the Tyrer Cuzick model (a risk assessment model) the patient's lifetime risk is 9.1% and her 10 year risk is 2.8%. According to the ACR, ACS, and NCCN guidelines, an annual breast MRI exam along with mammogram is recommended if the patient's lifetime risk is 20% or greater. This exam was interpreted at Station ID: [id number]. NOTE: For mammograms, a report in lay terms will be sent to the patient. Approximately 15% of breast malignancies will not be visualized mammographically. In the management of a palpable breast mass, a negative mammogram must not discourage biopsy of a clinically suspicious lesion. Electronically Signed By: Magno Guy M.D. lc/:04/17/2023 10:09:04 letter sent: Additional Imaging Needed ACR BI-RADS Category 0: Incomplete 3340F
== END ==
PROVIDERS: PCP Family Medicine; Referring Provider Family Medicine; Visit Provider Family Medicine
DX: Z12.31 Encounter for screening mammogram for malignant neoplasm of breast (principal)
CPT/HCPCS: 77063; 77067

== ENCOUNTER → 2023-04-30 13:26 | Outpatient (CLI) | payer OTHER, SELFPAY ==
[2022-10-29 14:01] VITALS: BMI 28.3
--- NOTE | 2023-04-30 13:26 | DI.MG.S_ITS ---
UNILATERAL LEFT DIGITAL DIAGNOSTIC MAMMOGRAM 3D/2D WITH ADDITIONAL VIEWS: 04/30/2023 CLINICAL: Additional evaluation requested from prior study. Comparison is made to exam dated: 04/16/2023 mammogram - [facility]. There are scattered areas of fibroglandular density in the left breast (category b / 25%-50% glandular tissue). There is a possible focal asymmetry in the left breast central to the nipple anterior depth. This is less prominent. No other significant masses or calcifications are seen in the breast. IMPRESSION: INCOMPLETE: NEEDS ADDITIONAL IMAGING EVALUATION The possible focal asymmetry in the left breast is indeterminate. A targeted ultrasound is recommended and will immediately follow. Based on the Tyrer Cuzick model (a risk assessment model) the patient's lifetime risk is 7.2% and her 10 year risk is 2.2%. According to the ACR, ACS, and NCCN guidelines, an annual breast MRI exam along with mammogram is recommended if the patient's lifetime risk is 20% or greater. This exam was interpreted at Station ID: [id number]. NOTE: For mammograms, a report in lay terms will be sent to the patient. Approximately 15% of breast malignancies will not be visualized mammographically. In the management of a palpable breast mass, a negative mammogram must not discourage biopsy of a clinically suspicious lesion. Electronically Signed By: Alex uCrtis M.D. slc/:04/30/2023 13:49:26 ACR BI-RADS Category 0: Incomplete 3340F
--- NOTE | 2023-04-30 13:26 | DI.US.S_ITS ---
LIMITED ULTRASOUND OF LEFT BREAST: 04/30/2023 CLINICAL: Abnormal mammogram. Comparison is made to exams dated: 04/30/2023 mammogram and 04/16/2023 mammogram - [facility]. Color flow and real-time ultrasound of the left breast retroareolar were performed. Casillas scale images of the real-time examination were reviewed. No significant abnormalities were seen sonographically in the left breast in the region of possible focal asymmetry. IMPRESSION: NEGATIVE There is no sonographic evidence of malignancy. No mass or cyst. A 1 year screening mammogram is recommended. Exam findings were conveyed to the patient. This exam was interpreted at Station ID: [id number]. Electronically Signed By: Alex Curtis M.D. slc/:04/30/2023 14:06:10 letter sent: Normal Exam Ultrasound BI-RADS: 1 Negative
== END ==
PROVIDERS: PCP Family Medicine; Referring Provider Family Medicine; Visit Provider Family Medicine
DX: R92.8 Other abnormal and inconclusive findings on diagnostic imaging of breast (principal)
CPT/HCPCS: 76642; 77065; G0279

== ENCOUNTER → 2023-05-01 07:01 | Outpatient (CLI) | payer OTHER, SELFPAY ==
[2022-10-29 14:01] VITALS: BMI 28.3
[2023-05-01 09:06] LABS: BUN Creatinine Ratio 25.4 (6-22); Blood Urea Nitrogen 15 mg/dL (7-17); Calcium 10.1 mg/dL (8.4-10.2); Carbon Dioxide 28 mmol/L (22-32); Chloride 100 mmol/L (98-107); Cholesterol 246 mg/dL (140-199); Estimated Glomerular Filt Rate > 60 mL/min (>60); Glucose 117 mg/dL (70-100); HDL Cholesterol 54 mg/dL (40-60); HEMOLYSIS < 15 (0-50); LDL Cholesterol Calculated 158 mg/dL (<100); Potassium 4.5 mmol/L (3.4-5.1); Sodium 137 mmol/L (137-145); Triglycerides 169 mg/dL (35-150)
[2023-05-02 07:03] LABS: Labcorp Hemoglobin (Hb) A1c 6.3 % (4.8-5.6)
== END ==
PROVIDERS: PCP Family Medicine; Referring Provider Family Medicine; Visit Provider Family Medicine
DX: Z00.00 Encounter for general adult medical examination without abnormal findings (principal); E78.2 Mixed hyperlipidemia; R73.01 Impaired fasting glucose
CPT/HCPCS: 36415; 80048; 80061; 83036

== ENCOUNTER 2023-06-22 16:15 | Emergency (ER) | payer OTHER, SELFPAY ==
[2022-10-29 14:01] VITALS: BMI 28.3
[2023-06-22] VITALS (10 sets, daily range): BP systolic 125–186; BP diastolic 57–82; PULSE 64–77; RESP 13–26; TEMP 36.3; O2SAT 96–99; BMI 29.2
--- NOTE | 2023-06-22 16:34 | ED.ALLEREA ---
HPI - Allergic Reaction General Chief complaint: Allergic Reaction Stated complaint: Stung, Allergic Time Seen by Provider: 06/22/23 16:29 Source: patient Mode of arrival: Ambulatory History of Present Illness HPI narrative: 58-year-old female who approximately 1 hour ago was stung under her left eye by a bee. She states that she was at her normal state of health prior to this and afterwards states she is having some blurry vision. States she just does not feel very well. Is getting lightheaded. No problems breathing. No vomiting. Other than the laura onto her right eye no other skin changes. She thinks that maybe she had an allergic reaction to bee sting when she was a child. No interventions prior to arrival. Related Data Home Medications Medication Instructions Recorded Confirmed multivitamin 1 tab PO DAILY 08/17/19 05/06/23 biotin 1,000 mg PO DAILY 07/23/21 05/06/23 Previous Rx's Medication Instructions Recorded albuterol sulfate 90 mcg/actuation 2 puff inhalation Q3-4H PRN 03/12/21 aerosol inhaler (Ventolin HFA) shortness of breath or wheezing #8.5 grams sertraline 100 mg tablet (Zoloft) 200 mg PO DAILY #180 tabs 01/16/23 cyclobenzaprine 10 mg tablet 10 mg PO Q8HR PRN Spasms #30 tabs 03/10/23 atorvastatin 20 mg tablet (Lipitor) 20 mg PO BEDTIME cholesterol #90 05/06/23 tabs lisinopril 10 mg tablet 10 mg PO DAILY blood pressure #90 05/06/23 tabs metformin 500 mg tablet,extended 1,000 mg PO DAILY blood sugars 05/06/23 release 24hr #180 tabs Allergies Allergy/AdvReac Type Severity Reaction Status Date / Time Barbiturates Allergy Severe anaphylaxis Verified 05/06/23 08:24 meperidine [From Demerol] Allergy Verified 05/06/23 08:24 simvastatin AdvReac Intermediate Myalgia Verified 05/06/23 08:24 Review of Systems Constitutional Constitutional: Reports system reviewed and no additional complaints, except as documented ENT Ears, Nose, Mouth, and Throat: Reports system reviewed and no additional complaints, except as documented Cardiovascular Cardiovascular: Reports system reviewed and no additional complaints, except as documented Respiratory Respiratory: Reports system reviewed and no additional complaints, except as documented Integumentary/Breasts Skin/Breast: Reports system reviewed and no additional complaints, except as documented Neurologic Neurologic: Reports system reviewed and no additional complaints, except as documented Hematologic/Lymphatic On Anticoagulants: No Patient History Medical History Depression (~2016) Dupuytren's contracture of left hand Fatty liver Fractures (~2002) GERD (gastroesophageal reflux disease) IFG (impaired fasting glucose) Positive JOSE ALBERTO (antinuclear antibody) Tobacco abuse Surgical History Anesthesia History of section History of tubal ligation (~02/28/05) S/P laparoscopic supracervical hysterectomy (~10/2020) Family History Mother Cancer History of heart disease Stroke Hypertension Social History marital status: household members: spouse and children Smoking Status: Current every day smoker second hand exposure: No alcohol intake: never substance use type: does not use Smoking Status: Current every day smoker tobacco type: cigarettes alcohol intake frequency: holidays/special occasions only Substance Use Type: does not use Exam Initial Vital Signs Initial Vital Signs: Vital Signs Temperature 97.4 F L 06/22/23 16:18 Pulse Rate 72 06/22/23 16:18 Respiratory Rate 16 06/22/23 16:18 Blood Pressure 155/68 H 06/22/23 16:18 Pulse Oximetry 99 06/22/23 16:18 Oxygen Delivery Method Room Air 06/22/23 16:18 Const General: cooperative, comfortable and No ill appearing Eyes Other: Small red laura under right eye. Resp Effort & Inspection: normal respiratory effort Auscultation: clear to auscultation bilaterally Cardio Rate: regular rate GI Inspection: normal to inspection and non-distended Palpation: soft and No tender Skin Other: Small red laura on her right eye Neuro General: patient alert, patient awake and moves all extremities Extrem General: normal to inspection and capillary refill normal Course Orders Ordered: Discontinued Medications Acetaminophen (Acetaminophen 325 Mg Tablet) 650 mg PO NOW ONE Stop: 06/22/23 17:48 Last Admin: 06/22/23 17:58 Dose: 650 mg Documented By: ST Diphenhydramine HCl (Diphenhydramine 50 Mg/Ml Vial) 25 mg IV NOW ONE Stop: 06/22/23 16:33 Last Admin: 06/22/23 16:45 Dose: 25 mg Documented By: ST Methylprednisolone (Methylprednisolone 125 Mg/2 Ml Vial) 125 mg IV NOW ONE Stop: 06/22/23 16:33 Last Admin: 06/22/23 16:45 Dose: 125 mg Documented By: ST Vital Signs Vital signs: Vital Signs - 8 hr 06/22/23 16:18 06/22/23 16:23 06/22/23 16:23 Temperature 97.4 F L Pulse Rate 72 72 Respiratory Rate 16 Blood Pressure 155/68 H 148/64 H Pulse Oximetry 99 99 Oxygen Delivery Method Room Air 06/22/23 16:30 06/22/23 16:30 06/22/23 17:00 Temperature Pulse Rate 71 64 Respiratory Rate 13 Blood Pressure 125/57 L Pulse Oximetry 98 96 Oxygen Delivery Method Room Air MDM - Allergic Reaction MDM Narrative Medical decision making narrative: Patient does have what appears to be an insect sting under her right eye. Patient is not having any anaphylactic reaction. No problems breathing. No vomiting. She was given Benadryl and Solu-Medrol. The redness improved. After period of observation she is improving so we will discharge home with the instructions that she can take Benadryl as needed. She was given return precautions. She expressed understanding and agreement. Discharge Plan Departure Patient Disposition: Home Clinical Impression: Insect sting Instructions: Insect Bites and Stings Activity Restrictions/Additional Instructions: You can take Benadryl every 6 hours as needed for symptoms like we discussed. Return to the emergency department for new or worsening symptoms. Prescriptions: No Action multivitamin Tablet 1 tab PO DAILY albuterol sulfate [Ventolin HFA] 90 mcg/actuation HFA aerosol inhaler 2 puff INHALATION Q3-4H PRN (Reason: shortness of breath or wheezing) Qty: 8.5 5RF biotin 1,000 mg PO DAILY sertraline [Zoloft] 100 mg tablet 200 mg PO DAILY Qty: 180 3RF metformin 500 mg tablet extended release 24hr 1,000 mg PO DAILY Qty: 180 3RF lisinopril 10 mg tablet 10 mg PO DAILY Qty: 90 3RF atorvastatin [Lipitor] 20 mg tablet 20 mg PO BEDTIME Qty: 90 0RF cyclobenzaprine 10 mg tablet 10 mg PO Q8HR PRN (Reason: Spasms) Qty: 30 11RF Referrals: Tiera Crawford DO [Primary Care Provider] - Stand Alone Forms: Patient Portal/API
[2023-06-22] MEDS: methylPREDNISolone 125 MG/2 ML VIAL IV (16:45)
[2023-06-22] MEDS: diphenhydrAMINE 50 MG/ML VIAL 25 MG IV (16:45)
[2023-06-22] MEDS: ACETAMINOPHEN 325 MG TABLET 650 MG PO (17:58)
== END 2023-06-22 18:20 | disposition home or self-care (01) ==
PROVIDERS: Emergency Provider Emergency Medicine; PCP Family Medicine
DX: T63.441A Toxic effect of venom of bees, accidental (unintentional), initial encounter (principal)
CPT/HCPCS: 36415; 96374; 96375; 99284; J1200; J2930

== ENCOUNTER 2023-07-27 10:16 | Emergency (ER) | payer OTHER, SELFPAY ==
[2023-07-27 08:01] VITALS: BMI 28.3
[2023-07-27 10:18] VITALS: BP 128/58; PULSE 80; RESP 18; TEMP 36.3; O2SAT 95; BMI 29.6
--- NOTE | 2023-07-27 11:05 | ED_ITS ---
HPI - Dizziness General Chief Complaint: Dizziness Stated Complaint: dizzy, can't hear out of L/ear, headache Time Seen by Provider: 07/27/23 10:28 Source: patient Mode of arrival: Ambulatory Related Data Home Medications Medication Instructions Recorded Confirmed multivitamin 1 tab PO DAILY 08/17/19 07/10/23 biotin 1,000 mg PO DAILY 07/23/21 07/10/23 Previous Rx's Medication Instructions Recorded albuterol sulfate 90 mcg/actuation 2 puff inhalation Q3-4H PRN 03/12/21 aerosol inhaler (Ventolin HFA) shortness of breath or wheezing #8.5 grams sertraline 100 mg tablet (Zoloft) 200 mg (2 x 100 mg) PO DAILY #180 01/16/23 tabs cyclobenzaprine 10 mg tablet 10 mg PO Q8HR PRN Spasms #30 tabs 03/10/23 atorvastatin 20 mg tablet (Lipitor) 20 mg PO BEDTIME cholesterol #90 05/06/23 tabs lisinopril 10 mg tablet 10 mg PO DAILY blood pressure #90 05/06/23 tabs metformin 500 mg tablet,extended 1,000 mg (2 x 500 mg) PO DAILY 05/06/23 release 24hr blood sugars #180 tabs Allergies Allergy/AdvReac Type Severity Reaction Status Date / Time Barbiturates Allergy Severe anaphylaxis Verified 07/10/23 09:12 meperidine [From Demerol] Allergy Verified 07/10/23 09:12 simvastatin AdvReac Intermediate Myalgia Verified 07/10/23 09:12 Review of Systems Constitutional Constitutional: Denies chills, Denies fatigue, Denies fever(s), Denies frequent falls, Denies lethargy and Denies weakness Eyes Eyes: Denies change in vision, Denies eye discharge, Denies irritation and Denies loss of vision ENT Ears, Nose, Mouth, and Throat: Denies change in voice, Denies dizziness, Denies neck pain, Denies sore throat and Denies throat swelling Cardiovascular Cardiovascular: Denies chest pain, Denies irregular heart rhythm, Denies lighth eadedness, Denies palpitations, Denies dyspnea, Denies dyspnea on exertion and Denies orthopnea Respiratory Respiratory: Denies cough, Denies dyspnea, Denies dyspnea on exertion and Denies wheezing Gastrointestinal Gastrointestinal: Denies abdominal pain, Denies change in bowel habits, Denies diarrhea, Denies nausea and Denies vomiting Musculoskeletal Musculoskeletal: Denies neck pain and Denies numbness Integumentary/Breasts Skin/Breast: Denies pruritus, Denies erythema, Denies rash and Denies wounds Neurologic Neurologic: Denies behavioral changes, Denies confusion, Denies dizziness, Denies frequent falls, Denies loss of vision, Denies numbness and Denies weakness Psychiatric Psychiatric: Denies anxiety, Denies behavioral changes, Denies confusion, Denies depression, Denies homicidal ideation and Denies suicidal ideation Endocrine Endocrine: Denies fatigue, Denies flushing and Denies palpitations Hematologic/Lymphatic Hematologic/Lymphatic: Denies easy bruising Allergic/Immunologic Allergic/Immunologic: Denies urticaria, Denies throat swelling and Denies wheezing Patient History Medical History Depression (~2016) Dupuytren's contracture of left hand Fatty liver Fractures (~2002) GERD (gastroesophageal reflux disease) IFG (impaired fasting glucose) Positive JOSE ALBERTO (antinuclear antibody) Tobacco abuse Surgical History S/P laparoscopic supracervical hysterectomy (~10/2020) Anesthesia History of section History of tubal ligation (~02/28/05) Family History Mother Cancer History of heart disease Stroke Hypertension Social History marital status: household members: spouse and children Smoking Status: Current every day smoker second hand exposure: No alcohol intake: never substance use type: does not use Smoking Status: Current every day smoker tobacco type: cigarettes alcohol intake frequency: holidays/special occasions only Substance Use Type: does not use Exam Narrative Exam Narrative: Const General:?cooperative, healthy appearing and comfortable [facility] Head:?normal to inspection Ears:?hearing grossly normal bilaterally Nose:?external nose normal Face and sinus:?normal facial exam and sinuses nontender Mouth:?oral mucosae normal Throat:?posterior oropharynx normal Eyes General:?appearance normal, both eyes and all related structures Neck Neck:?normal visual inspection and no lymphadenopathy noted Resp Effort & Inspection:?normal respiratory effort Auscultation:?clear to auscultation bilaterally Cardio Rate:?regular rate Rhythm:?regular rhythm Neuro General:?patient alert, patient awake and patient oriented x3 Initial Vital Signs Initial Vital Signs: Vital Signs Temperature 97.4 F L 07/27/23 10:18 Pulse Rate 80 07/27/23 10:18 Respiratory Rate 18 07/27/23 10:18 Blood Pressure 128/58 L 07/27/23 10:18 Pulse Oximetry 95 07/27/23 10:18 Oxygen Delivery Method Room Air 07/27/23 10:18 Course Vital Signs Vital signs: Vital Signs - 8 hr 07/27/23 10:18 Temperature 97.4 F L Pulse Rate 80 Respiratory Rate 18 Blood Pressure 128/58 L Pulse Oximetry 95 Oxygen Delivery Method Room Air Discharge Plan Departure Prescriptions: No Action multivitamin Tablet 1 tab PO DAILY albuterol sulfate [Ventolin HFA] 90 mcg/actuation HFA aerosol inhaler 2 puff INHALATION Q3-4H PRN (Reason: shortness of breath or wheezing) Qty: 8.5 5RF biotin 1,000 mg PO DAILY sertraline [Zoloft] 100 mg tablet 200 mg PO DAILY Qty: 180 3RF metformin 500 mg tablet extended release 24hr 1,000 mg PO DAILY Qty: 180 3RF lisinopril 10 mg tablet 10 mg PO DAILY Qty: 90 3RF atorvastatin [Lipitor] 20 mg tablet 20 mg PO BEDTIME Qty: 90 0RF cyclobenzaprine 10 mg tablet 10 mg PO Q8HR PRN (Reason: Spasms) Qty: 30 11RF Referrals: Tiera Crawford DO [Primary Care Provider] -
== END 2023-07-27 11:10 | disposition left against medical advice (07) ==
PROVIDERS: Emergency Provider Emergency Medicine; PCP Family Medicine
CPT/HCPCS: 99281

== ENCOUNTER → 2023-09-03 11:02 | Outpatient (CLI) | payer OTHER, SELFPAY | PROVIDERS: PCP Family Medicine; Referring Provider Family Medicine; Visit Provider Family Medicine | DX: Z23 Encounter for immunization (principal) | CPT/HCPCS: 90471; 90686 ==

== ENCOUNTER → 2024-02-22 15:16 | Outpatient (CLI) | payer OTHER, SELFPAY ==
[2024-02-22 17:20] LABS: Hemoglobin A1C% w Est Avg Glu 6.1 % (4.0-6.0)
[2024-02-22 18:33] LABS: Alanine Aminotransferase 27 IU/L (<35); Albumin 4.7 g/dL (3.5-5.0); Albumin Globulin Ratio 1.8 (1.0-2.8); Alkaline Phosphatase 99 U/L (38-126); Aspartate Aminotransferase 24 IU/L (14-36); BUN Creatinine Ratio 26.1 (6-22); Bilirubin Total 0.5 mg/dL (0.2-1.3); Blood Urea Nitrogen 18 mg/dL (7-17); Calcium 10.3 mg/dL (8.4-10.2); Carbon Dioxide 27 mmol/L (22-32); Chloride 105 mmol/L (98-107); Cholesterol 167 mg/dL (140-199); Estimated Glomerular Filt Rate > 60 mL/min (>60); Globulin 2.6 g/dL (1.7-4.1); Glucose 86 mg/dL (70-100); HDL Cholesterol 56 mg/dL (40-60); HEMOLYSIS < 15 (0-50); LDL Cholesterol Calculated 81 mg/dL (<100); Potassium 4.8 mmol/L (3.4-5.1); Sodium 140 mmol/L (137-145); Total Protein 7.3 g/dL (6.3-8.2); Triglycerides 149 mg/dL (35-150)
== END ==
PROVIDERS: PCP Family Medicine; Referring Provider Family Medicine; Visit Provider Family Medicine
DX: R73.03 Prediabetes (principal); E78.2 Mixed hyperlipidemia
CPT/HCPCS: 36415; 80053; 80061; 83036

== ENCOUNTER → 2024-05-13 15:05 | Outpatient (CLI) | payer OTHER, SELFPAY ==
--- NOTE | 2024-05-13 15:06 | DI.MG.S_ITS ---
BILATERAL DIGITAL SCREENING MAMMOGRAM 3D/2D WITH CAD: 05/13/2024 CLINICAL: Routine screening. Comparison is made to exam dated: 04/16/2023 mammogram - [facility]. There are scattered areas of fibroglandular density in both breasts (category b / 25%-50% glandular tissue). Current study was also evaluated with a Computer Aided Detection (CAD) system. No significant masses, calcifications, or other findings are seen in either breast. There has been no significant interval change. IMPRESSION: NEGATIVE There is no mammographic evidence of malignancy. A 1 year screening mammogram is recommended. Based on the Tyrer Cuzick model (a risk assessment model) the patient's lifetime risk is 7.0% and her 10 year risk is 2.4%. According to the ACR, ACS, and NCCN guidelines, an annual breast MRI exam along with mammogram is recommended if the patient's lifetime risk is 20% or greater. This exam was interpreted at Station ID: [id number]. NOTE: For mammograms, a report in lay terms will be sent to the patient. Approximately 15% of breast malignancies will not be visualized mammographically. In the management of a palpable breast mass, a negative mammogram must not discourage biopsy of a clinically suspicious lesion. Electronically Signed By: Juan verdin/cipriano:05/16/2024 07:22:00 letter sent: Normal Exam ACR BI-RADS Category 1: Negative [id number]
== END ==
PROVIDERS: PCP Family Medicine; Referring Provider Family Medicine; Visit Provider Family Medicine
DX: Z12.31 Encounter for screening mammogram for malignant neoplasm of breast (principal); R92.323 Mammographic fibroglandular density, bilateral breasts
CPT/HCPCS: 77063; 77067

== ENCOUNTER → 2024-07-08 14:26 | Outpatient (CLI) | payer OTHER, SELFPAY ==
[2024-07-08 17:24] LABS: Influenza A - CEPHEID Flu A NEGATIVE (NEGATIVE); Influenza B - CEPHEID Flu B NEGATIVE (NEGATIVE); Respiratory Syncytial Virus Negative (Negative)
[2024-07-08 17:28] LABS: COVID-19 CEPHEID 4-PLEX PCR Negative (Negative)
== END ==
PROVIDERS: PCP Family Medicine; Visit Provider Family Medicine
DX: R05.9 Cough, unspecified (principal)
CPT/HCPCS: 0241U

== ENCOUNTER → 2024-07-29 18:43 | Outpatient (CLI) | payer OTHER, SELFPAY | PROVIDERS: PCP Family Medicine; Referring Provider Internal Medicine; Visit Provider Internal Medicine | DX: Z23 Encounter for immunization (principal) | CPT/HCPCS: 90471; 90656 ==

== ENCOUNTER → 2024-08-25 11:13 | Outpatient (CLI) | payer OTHER, SELFPAY ==
[2024-08-25 12:39] LABS: Hemoglobin A1C% w Est Avg Glu 6.3 % (4.0-6.0)
[2024-08-25 13:00] LABS: BUN Creatinine Ratio 26.4 (6-22); Blood Urea Nitrogen 23 mg/dL (7-17); Calcium 9.9 mg/dL (8.4-10.2); Carbon Dioxide 26 mmol/L (22-32); Chloride 103 mmol/L (98-107); Estimated Glomerular Filt Rate > 60 mL/min (>60); Glucose 96 mg/dL (70-100); HEMOLYSIS < 15 (0-50); Potassium 4.1 mmol/L (3.4-5.1); Sodium 137 mmol/L (137-145)
[2024-08-25 15:20] LABS: HIV 1 & 2 Ab/Ag 4th Gen Combo NEGATIVE (NEGATIVE); Hep C Virus Ab w/Reflex Quant REACTIVE s/c (NEGATIVE)
== END ==
LOC: LAB 11:14
PROVIDERS: PCP Family Medicine; Referring Provider Family Medicine; Visit Provider Family Medicine
DX: R73.01 Impaired fasting glucose (principal); I10 Essential (primary) hypertension; Z11.59 Encounter for screening for other viral diseases; Z11.4 Encounter for screening for human immunodeficiency virus [HIV]
CPT/HCPCS: 36415; 80048; 83036; 86803; 87389; 87522